=== PATIENT | female | born 1935 | race Caucasian/White ===

== ENCOUNTER → 2018-12-07 | Outpatient (REF) | payer MEDICAID, MEDICARE ==
[2018-12-07 10:13] LABS: HEMATOCRIT 42.4 % (36.0-47.0); HEMOGLOBIN 13.7 g/dl (12.0-15.5); MEAN CORPUSCULAR HGB CONC 32.3 g/dl (32.0-36.5); MEAN CORPUSCULAR VOLUME 92.8 fl (80.0-96.0); PLATELET COUNT, AUTOMATED 236 10^3/uL (150-450); RED BLOOD COUNT 4.57 10^6/uL (4.00-5.40); WHITE BLOOD COUNT 7.1 10^3/uL (4.0-10.0)
[2018-12-07 10:45] LABS: ALBUMIN 3.1 GM/DL (3.2-5.2); ALT/SGPT 19 U/L (12-78); BILIRUBIN,TOTAL 0.2 MG/DL (0.2-1.0); BLOOD UREA NITROGEN 14 MG/DL (7-18); CALCIUM LEVEL 8.8 MG/DL (8.8-10.2); CARBON DIOXIDE LEVEL 30 MEQ/L (21-32); CHLORIDE LEVEL 105 MEQ/L (98-107); CHOLESTEROL LEVEL 132 MG/DL (<200); CHOLESTEROL RISK RATIO 4.125 (<5); CREATININE FOR GFR 0.78 MG/DL (0.55-1.30); GLOMERULAR FILTRATION RATE > 60.0 (>32); GLUCOSE, FASTING 149 MG/DL (70-100); HDL CHOLESTEROL 32 MG/DL (>40); LDL CHOLESTEROL 77 MG/DL (<100); NON-HDL-C 100 MG/DL; SODIUM LEVEL 141 MEQ/L (136-145); TRIGLYCERIDES LEVEL 115 MG/DL (<150)
[2018-12-07 10:47] LABS: TOTAL 25(OH) VITAMIN D 55.9 NG/ML (30.0-100.0)
== END ==
LOC: SKLAB8 08:00
PROVIDERS: ATTEND Internal Medicine
DX: E03.9 Hypothyroidism, unspecified (principal); E55.9 Vitamin D deficiency, unspecified; I10 Essential (primary) hypertension; Z79.899 Other long term (current) drug therapy

== ENCOUNTER → 2019-04-05 | Outpatient (REF) | payer MEDICARE ==
[2019-04-05 16:20] LABS: BLOOD UREA NITROGEN 16 MG/DL (7-18); CALCIUM LEVEL 9.5 MG/DL (8.8-10.2); CARBON DIOXIDE LEVEL 29 MEQ/L (21-32); CHLORIDE LEVEL 104 MEQ/L (98-107); CREATININE FOR GFR 0.84 MG/DL (0.55-1.30); GLOMERULAR FILTRATION RATE > 60.0 (>32); GLUCOSE, FASTING 128 MG/DL (70-100); SODIUM LEVEL 140 MEQ/L (136-145)
== END ==
LOC: SKLAB8 15:11
PROVIDERS: ATTEND Internal Medicine
DX: E03.9 Hypothyroidism, unspecified (principal); F03.90 Unspecified dementia, unspecified severity, without behavioral disturbance, psychotic disturbance, mood disturbance, and anxiety; R32 Unspecified urinary incontinence; I12.9 Hypertensive chronic kidney disease with stage 1 through stage 4 chronic kidney disease, or unspecified chronic kidney disease; N18.3 Chronic kidney disease, stage 3 (moderate)

== ENCOUNTER → 2019-04-06 | Outpatient (REF) | payer MEDICARE ==
[~2019-04-06] MED LIST: ACET-907 PO; ALTA1CAP PO; AMLO5TAB6 PO; ASPI81CH8 PO; ATEN50TA2 PO; ATOR1TAB21 PO; D 10CHW PO; DIVA1CAP PO; DULC10SU2 PR; ELIQ5TAB PO; ENEMENE PR; LOPR1TAB6 PO; MEMA10TA19 PO; MOM30SS PO; NITR4TASL SL; PANT40TA3 PO; SYNT50TA PO
[2019-04-06 15:20] LABS: BLOOD UREA NITROGEN 13 MG/DL (7-18); CALCIUM LEVEL 9.2 MG/DL (8.8-10.2); CARBON DIOXIDE LEVEL 30 MEQ/L (21-32); CHLORIDE LEVEL 104 MEQ/L (98-107); CREATININE FOR GFR 0.89 MG/DL (0.55-1.30); GLOMERULAR FILTRATION RATE > 60.0 (>32); GLUCOSE, FASTING 121 MG/DL (70-100); POTASSIUM SERUM 4.4 MEQ/L (3.5-5.1); SODIUM LEVEL 140 MEQ/L (136-145)
== END ==
LOC: SKLAB8 04-05 19:20
PROVIDERS: ATTEND Internal Medicine
DX: G30.9 Alzheimer's disease, unspecified (principal); F02.81 Dementia in other diseases classified elsewhere, unspecified severity, with behavioral disturbance

== ENCOUNTER → 2019-05-26 | Outpatient (REF) | payer MEDICARE ==
[2019-05-26 08:04] LABS: HEMATOCRIT 42.7 % (36.0-47.0); HEMOGLOBIN 13.7 g/dl (12.0-15.5); MEAN CORPUSCULAR HEMOGLOBIN 30.9 pg (27.0-33.0); MEAN CORPUSCULAR HGB CONC 32.1 g/dl (32.0-36.5); MEAN CORPUSCULAR VOLUME 96.2 fl (80.0-96.0); PLATELET COUNT, AUTOMATED 229 10^3/uL (150-450); RED BLOOD COUNT 4.44 10^6/uL (4.00-5.40); WHITE BLOOD COUNT 6.1 10^3/uL (4.0-10.0)
[2019-05-26 08:33] LABS: ALBUMIN 2.8 GM/DL (3.2-5.2); ALT/SGPT 18 U/L (12-78); BILIRUBIN,TOTAL 0.4 MG/DL (0.2-1.0); BLOOD UREA NITROGEN 13 MG/DL (7-18); CALCIUM LEVEL 8.9 MG/DL (8.8-10.2); CARBON DIOXIDE LEVEL 28 MEQ/L (21-32); CHLORIDE LEVEL 107 MEQ/L (98-107); CREATININE FOR GFR 0.77 MG/DL (0.55-1.30); GLOMERULAR FILTRATION RATE > 60.0 (>32); GLUCOSE, FASTING 112 MG/DL (70-100); SODIUM LEVEL 140 MEQ/L (136-145); TOTAL PROTEIN 6.9 GM/DL (6.4-8.2)
== END ==
LOC: SKLAB8 07:00
PROVIDERS: ATTEND Internal Medicine
DX: E03.9 Hypothyroidism, unspecified (principal)

== ENCOUNTER 2019-07-27 09:40 | Inpatient (IN) | payer MEDICARE ==
[2019-07-27] VITALS (7 sets, daily range): BP systolic 106–146; BP diastolic 58–99
[~2019-07-27] VITALS: Ht 152.4 cm; Wt 98.0 kg
[2019-07-27] MEDS ORDERED: ASPIRIN 81 MG CHEW TABLET PO ONE (10:15)
[2019-07-27] MEDS ORDERED: NITROGLYCERIN 2% OINT 1 GM *U/D* PKT TOP ONE (10:15)
[2019-07-27 10:22] LABS: BASO % 0.2 % (0.0-1.0); EOS # 0.1 10^3/uL (0.0-0.5); EOS % 1.4 % (0.0-3.0); HEMATOCRIT 45.2 % (36.0-47.0); HEMOGLOBIN 14.8 g/dl (12.0-15.5); LYMPH # 1.8 10^3/uL (1.5-5.0); LYMPH % 20.7 % (24.0-44.0); MEAN CORPUSCULAR HEMOGLOBIN 31.6 pg (27.0-33.0); MEAN CORPUSCULAR HGB CONC 32.7 g/dl (32.0-36.5); MEAN CORPUSCULAR VOLUME 96.4 fl (80.0-96.0); MONO # 0.8 10^3/uL (0.0-0.8); MONO % 9.3 % (0.0-5.0); NEUTROPHILS % 68.3 % (36.0-66.0); PLATELET COUNT, AUTOMATED 251 10^3/uL (150-450); RED BLOOD COUNT 4.69 10^6/uL (4.00-5.40); WHITE BLOOD COUNT 8.8 10^3/uL (4.0-10.0)
[2019-07-27] MEDS ORDERED: ENEMENE PR (10:32)
[2019-07-27] MEDS ORDERED: LOPR1TAB6 PO (10:32)
[2019-07-27] MEDS ORDERED: D 10CHW PO (10:32)
[2019-07-27] MEDS ORDERED: MOM30SS PO (10:32)
[2019-07-27] MEDS ORDERED: SYNT50TA PO (10:32)
[2019-07-27] MEDS ORDERED: MEMA1TAB2 PO (10:32)
[2019-07-27] MEDS ORDERED: DIVA1CAP PO (10:32)
[2019-07-27] MEDS ORDERED: ACET-907 PO (10:32)
[2019-07-27] MEDS ORDERED: DULC10SU2 PR (10:32)
[2019-07-27 10:35] LABS: INR 1.02; PROTHROMBIN TIME 13.1 SECONDS (11.8-14.0)
[2019-07-27 10:36] LABS: PARTIAL THROMBOPLASTIN TIME 26.8 SECONDS (25.0-38.4)
--- NOTE | 2019-07-27 10:59 | REP ---
CHEST, SINGLE VIEW: Single view of the chest is performed. There are no prior studies for comparison. There is mild cardiomegaly. There is mild pulmonary venous hypertension. No infiltrate is seen. There is mild calcification and tortuosity of the thoracic aorta. The mediastinal silhouette is otherwise unremarkable. Electronically Signed by Rhett Thomas MD 07/28/2019 04:41 P
[2019-07-27] MEDS ORDERED: MORPHINE 2 MG/ML 1ML SYRINGE (J2270) IV PRN (11:00)
[2019-07-27] MEDS ORDERED: NITROGLYCERIN 0.4 MG SUBL TABLET SL PRN (11:00)
[2019-07-27 11:07] LABS: BLOOD UREA NITROGEN 16 MG/DL (7-18); CALCIUM LEVEL 9.4 MG/DL (8.8-10.2); CARBON DIOXIDE LEVEL 27 MEQ/L (21-32); CHLORIDE LEVEL 105 MEQ/L (98-107); CK-MB VALUE MASS 14.3 NG/ML (<3.6); CPK CREATINE PHOSPHOKINASE 257 U/L (26-192); CREATININE FOR GFR 0.77 MG/DL (0.55-1.30); GLOMERULAR FILTRATION RATE > 60.0 (>32); GLUCOSE, FASTING 113 MG/DL (70-100); MB/CK RELATIVE INDEX 5.56 (< OR =4); NT-PRO BNP 645 PG/ML (<450); POTASSIUM SERUM 4.6 MEQ/L (3.5-5.1); SODIUM LEVEL 140 MEQ/L (136-145)
[2019-07-27] MEDS ORDERED: CLOPIDOGREL 300 MG TAB (PLAVIX) PO ONE (12:00)
[2019-07-27] MEDS ORDERED: MORPHINE 4 MG/ML 1ML VIAL/SYRINGE (J2270) IV PRN (12:28)
[2019-07-27] MEDS ORDERED: DIGOXIN INJ 0.5 MG/2 ML AMP (J1160) IV STA (12:41)
[2019-07-27] MEDS ORDERED: MOM 30ML SUSPENSION UDC PO PRN (12:45)
[2019-07-27] MEDS ORDERED: METOPROLOL 5 MG/5 ML VIAL IV PRN (12:45)
[2019-07-27] MEDS ORDERED: BISACODYL 10 MG SUPP PR PRN (12:45)
[2019-07-27] MEDS ORDERED: METOPROLOL 5 MG/5 ML VIAL IV STA (12:55)
[2019-07-27] MEDS ORDERED: SIMVASTATIN 40 MG TAB PO ONE (13:15)
[2019-07-27] MEDS: ENOXAPARIN 80 MG/0.8 ML SYRINGE (J1650) SC SCH (13:18)
[2019-07-27] MEDS ORDERED: NS 250 ML IV ONE (13:30)
[2019-07-27] MEDS ORDERED: CLOPIDOGREL 75 MG TAB PO ONE (14:00)
--- NOTE | 2019-07-27 14:15 | HPE ---
DATE OF ADMISSION: 07/27/2019 CHIEF COMPLAINT: Chest pain. HISTORY OF PRESENT ILLNESS: This is an 84-year-old female with a history of hypertensive heart disease, hypertensive chronic kidney disease stage III, advanced Alzheimer's dementia with behavioral changes, currently lives at [facility] advanced dementia unit, presented to the emergency room with complaints of chest pain at 9 :00 a.m. this morning. The patient was found to have a new inferior wall myocardial infarction as well as blood pressure of 201/97. The hospitalist service was called to admit. Most of the history is obtained from the patient's daughter who is present at the bedside as the patient is severely demented. According to the daughter, the patient has been tired for the past two days. She was seen by the daughter yesterday. She usually gets up early and wanders about. Around 9:00 a.m. this morning, the patient denied any nausea, vomiting, epigastric pain, diaphoresis, dizziness, palpitations or lightheadedness. She was found to have uncontrolled blood pressure and was subsequently sent to the emergency room for evaluation for chest pain and hypertension. According to the daughter, the patient has been compliant with her medication, Lopressor 50 mg twice a day. In the ER she was chest pain free after nitroglycerin paste was placed. Hospitalist service ws called to admit. She otherwise she denies any fevers, chills or cough. She denies any dysuria, urgency, frequency, upper or lower extremity weakness. PAST MEDICAL HISTORY: Prolapsed uterus. Advanced Alzheimer's dementia. Lives on a locked unit at [facility]. Hypertensive chronic kidney disease stage III. Hypertensive heart disease. Hypothyroidism. Gastroesophageal reflux. Morbid obesity, body mass index (BMI) of 43. PAST SURGICAL HISTORY: Bladder suspension. Hysterectomy. Cholecystectomy. ALLERGIES: No known drug allergies. HOME MEDICATIONS: - metoprolol 50 mg twice a day - Milk of Magnesia as needed - levothyroxine 50 mcg daily - divalproex acid 125 mg daily - vitamin D 2000 units daily - Dulcolax 10 mg as needed - acetaminophen 650 mg every 4 hours as needed - memantine 10 mg twice a day - fleet enema as needed REVIEW OF SYSTEMS: 10 point system unable to be obtained aside from positive findings on HPI due to the patient's dementia. PHYSICAL EXAMINATION: VITAL SIGNS: Temperature 97.4, pulse 73, respiratory rate 17, blood pressure 145/63, 100% on room air. Repeat vital signs on telemetry pulse of 122, irregularly irregular. Generally, patient is awake, alert, oriented to self only. She answers questions appropriately, but very disoriented. She is cooperative. No jugular venous distention (JVD). No thyromegaly. No cervical lymphadenopathy. Pupils round and reactive. Patient is following commands. No facial drooping. No respiratory distress. No tracheal deviation. No nasal turbinate congestion. Lungs are clear to auscultation. No wheezing, rales or rhonchi. Heart S1, S2, irregularly irregular. No murmurs, rubs or gallops. Abdomen is soft, nontender, nondistended. Obese abdomen. Positive bowel sounds times four quadrants. No hepatosplenomegaly or abdominal bruits. Extremities no cyanosis or clubbing. No pallor. EKG sinus rhythm, ventricular rate of 69 at 8:43 a.m. with inferior Q waves, NV interval 183, QRS of 94, QT of 393, QTc of 412. LABORATORY DATA: White count 8.8, hemoglobin 14, hematocrit 45, platelet count 251. Sodium 140, potassium 4.6, chloride 105, bicarb 27, BUN 16, creatinine 0.77, glucose 113. Total CK 257, MB fraction 14, relative index 5.5, troponin 3.1. BNP of 645. ASSESSMENT/PLAN: This is an 84-year-old female with advanced dementia who resides at [facility] unit for dementia, usually wanders, hypertensive heart disease, hypertensive chronic kidney disease stage III, obesity with BMI of 43, reflux disease, hypothyroidism, who presents with acute onset of chest pain, found to have a new acute inferior myocardial infarction with subsequent new onset atrial fibrillation. The patient will be admitted as an inpatient for two midnights for the following acute issues: 1. Acute inferior wall myocardial infarction. The patient will be admitted to the telemetry unit. She has already been given aspirin, a low dose of Plavix, Lovenox 1 mg/kg renally dosed, Zocor and beta-blockers. Cardiology has been consulted for management. Echocardiogram has been ordered. 2. Telemetry shows atrial flutter with rapid ventricular rate. She has been given one dose of IV digoxin and a dose of intravenous metoprolol. Holding parameters for metoprolol twice a day have been given in light of blood pressure of 119 at the bedside. 3. Atrial flutter with rapid ventricular rate. Cardiology has been consulted for management of new onset atrial flutter. Patient currently is on aspirin and Plavix. For the patient's acute AZ she will need anticoagulation but will defer this to loss prevention leader. At this time the patient is currently on metoprolol 50 twice a day from her home dose but will need to monitor to make sure there is no hypotension. She did receive one dose of IV digoxin. Will check a digoxin level in the morning. 4. History of chronic kidney disease stage III. All medications have been renally dosed. 5. Morbid obesity, BMI of 43. Complicating her care. 6. Advanced dementia. The patient has very poor quality of life and often times does not remember her family or who they are. The patient's family have decided, according to the patient's prior wishes, do not pursue interventional radiology catheterization and possible stent placement and transfer to [place]. The patient will be continued on her home dose of memantine. She will need a sitter due to wandering behavior. The patient had already pulled out her IV. 7. Hypothyroidism. Continue on home dose of levothyroxine. Check thyroid function tests. 8. Hypertensive emergency with cute AZ. Due to hypertensive heart disease the patient had been compliant with her medications, metoprolol. She has been given nitro patch. Will place holding parameters on metoprolol in light of acute AZ. 9. History of reflux. Placed on Protonix 40 daily. 10. Vitamin D deficiency on supplementation. ADDENDUM: At 1:15 pm, patient was found to have new onset atrial flutter with rapid ventricular rate of 122-130. Blood pressure was 109 systolic. Patient did not complain of lightheadedness, dizziness, near syncope, palpitations, shortness of breath, chest pain, pressure or tightness. Patient was given one dose of IV metoprolol 5 mg as well as IV digoxin 0.125 mg. Patient's daughter was the healthcare proxy, Keyona Bowles, phone number [phone], who was present at the bedside in the intensive care unit (ICU) and has agreed with current management. Due to potential decrease in blood pressure, patient has been also been given a small dose of normal saline 250 bolus to allow enough blood pressure, 5 mg metoprolol to be given. She is resumed on her home dose of metoprolol 50 mg twice a day to be resumed later today but may need to be given earlier this morning for better rate control. Drawbench Operator, Dr. Ceron has been consulted. Patient has been given aspirin, simvastatin, Plavix and currently on Lovenox. I have discussed anticoagulation for prevention of cerebrovascular accident (CVA) with the patient's healthcare proxy Keyona, who is an RN. She will discuss this with the rest of the family and return to us with a decision. At this time, she is properly anticoagulated with Lovenox 1 mg subcu every 12 hours for a treatment for acute myocardial infarction that is renally dosed. MTDD
[2019-07-27 14:24] LABS: CHOLESTEROL RISK RATIO 5.705 (<5); FREE THYROXINE INDEX 4.2 % (1.3-4.8); THYROID STIMULATING HORMONE 2.25 uIU/ML (0.358-3.740); TROPONIN I 26.2 NG/ML (< 0.10)
[2019-07-27] MEDS: VITAMIN D 1,000 INTERNATIONAL UNITS TABLET PO SCH (15:05)
[2019-07-27] MEDS: PANTOPRAZOLE 40MG TAB (PROTONIX) PO SCH (15:07)
[2019-07-27] MEDS: METOPROLOL TART 25 MG TABLET PO SCH ×2 (15:07→18:27)
[2019-07-27] MEDS: NITROGLYCERIN 2% OINT 1 GM *U/D* PKT TOP SCH ×2 (16:00→21:57)
[2019-07-27] MEDS: DIVALPROEX SPRINKLE 125 MG CAP PO SCH (16:32)
[2019-07-27] MEDS ORDERED: METOPROLOL TART 50 MG TAB PO SCH (21:00)
[2019-07-27] MEDS: MEMANTINE 5MG TABLET (NAMENDA) PO SCH (21:56)
[2019-07-28] VITALS (11 sets, daily range): BP systolic 107–193; BP diastolic 56–88
[2019-07-28] MEDS: METOPROLOL TART 25 MG TABLET PO SCH ×5 (00:05→22:47)
[2019-07-28] MEDS: ENOXAPARIN 80 MG/0.8 ML SYRINGE (J1650) SC SCH ×3 (00:05→23:26)
[2019-07-28] MEDS: NITROGLYCERIN 2% OINT 1 GM *U/D* PKT TOP SCH ×4 (04:00→20:36)
[2019-07-28] MEDS: LEVOTHYROXINE 50MCG TABLET (0.05MG) PO SCH (05:24)
[2019-07-28 05:28] LABS: HEMATOCRIT 43.6 % (36.0-47.0); HEMOGLOBIN 14.1 g/dl (12.0-15.5); MEAN CORPUSCULAR HEMOGLOBIN 30.8 pg (27.0-33.0); MEAN CORPUSCULAR HGB CONC 32.3 g/dl (32.0-36.5); MEAN CORPUSCULAR VOLUME 95.2 fl (80.0-96.0); PLATELET COUNT, AUTOMATED 245 10^3/uL (150-450); RED BLOOD COUNT 4.58 10^6/uL (4.00-5.40); WHITE BLOOD COUNT 8.8 10^3/uL (4.0-10.0)
[2019-07-28 06:01] LABS: ALBUMIN 2.8 GM/DL (3.2-5.2); BLOOD UREA NITROGEN 12 MG/DL (7-18); CALCIUM LEVEL 8.7 MG/DL (8.8-10.2); CARBON DIOXIDE LEVEL 27 MEQ/L (21-32); CHLORIDE LEVEL 107 MEQ/L (98-107); CREATININE FOR GFR 0.72 MG/DL (0.55-1.30); DIGOXIN LEVEL 0.3 NG/ML (0.5-2.0); GLOMERULAR FILTRATION RATE > 60.0 (>32); GLUCOSE, FASTING 109 MG/DL (70-100); PHOSPHORUS LEVEL 2.6 MG/DL (2.5-4.9); POTASSIUM SERUM 4.5 MEQ/L (3.5-5.1); SODIUM LEVEL 139 MEQ/L (136-145)
--- NOTE | 2019-07-28 07:07 | CR ---
DATE OF CONSULTATION: 07/27/2019 REFERRING PROVIDER: Dr. Enid Chirinos REASON FOR CONSULTATION: Myocardial infarction (NV), atrial fibrillation. HISTORY OF PRESENT ILLNESS: 84-year-old woman with a history of hypertensive heart disease and dementia secondary to Alzheimer disease who was brought to the emergency room (ER) today early in the morning with chest pain and elevated blood pressure. Her initial electrocardiogram (EKG) done at 8:43:47 revealed sinus rhythm with acute inferior wall NV. It seems the decision was made not to transfer her because of patient wish and also because of her dementia. Repeat tracing on 9:52:06 also today and at 13:11:[address] segment elevation and much less reciprocal changes. The third EKG done this afternoon revealed atrial fibrillation at a ventricular rate of 121 beats per minute. Cardiology consult called for further evaluation. When I saw Mrs. Janina Bowles this evening in the ICU/CCU, she was supine in bed in no acute distress at rest and a sitter as well as a nurse was at bedside. She denies any chest pain per se, but she does complain of discomfort in the upper abdominal area. She had no orthopnea or paroxysmal nocturnal dyspnea (PND). Her atrial fibrillation seems under control. There is no dizziness. There is no diaphoresis. There is no report of bleeding. PAST MEDICAL HISTORY: Positive as mentioned above for hypertensive heart disease, hypothyroidism, gastroesophageal reflux disease, morbid obesity and dementia secondary to Alzheimer disease. There is no prior history of myocardial infarction, CVA, significant valvular heart disease, cardiomyopathy, sudden cardiac , prior NV/CAD. PAST SURGICAL HISTORY: Positive for bladder suspicion surgery, hysterectomy and cholecystectomy. CURRENT MEDICATIONS: - Plavix 75 mg by mouth daily - aspirin 81 mg by mouth daily - simvastatin 40 mg by mouth daily - levothyroxine 50 mcg by mouth daily - memantine 10 mg by mouth twice a day - nitroglycerin patch that he is on hold - magnesium oxide - Dulcolax 10 mg by mouth daily as needed - morphine sulfate 2 mg as needed IV - Lovenox of 70 mg subcu every 2 hours - metoprolol tartrate 25 mg by mouth every 6 hours - nitroglycerin sublingual 0.4 mg as needed for chest pain - pantoprazole 40 mg by mouth daily - vitamin D 2000 units by mouth daily - valproic acid 125 mg by mouth daily FAMILY HISTORY: Noncontributory. SOCIAL HISTORY: The patient is a resident of the [facility] and according to the daughter she is there because she wanders at times because of her dementia. Otherwise, she is very active. She does not smoke. There is no EtOH abuse. ALLERGIES: There is no known drug allergies. PHYSICAL EXAMINATION: The patient is alert and oriented, in no acute distress at rest. Her most recent vital signs reveal blood pressure of 119/75 with pulse that varied between 80-96, respirations 18 and a maximum temperature of 98.2 degrees Fahrenheit with oxygen saturation of 96% on room air. Examination of the Head: Atraumatic. Neck is supple and no jugular venous distention (JVD) appreciated. Lungs did not reveal any wheezing or crackles. Heart examination revealed an irregularly irregular heart sound without gallops. The PMI is not displaced. There is no rub. I could not appreciate any murmurs. Abdomen is soft and nontender. Bowel sounds are positive. Extremities only reveal trace bilateral lower leg edema. Neurological Examination: Grossly is negative for focal deficit. LABORATORY DATA: Serum troponins were 3.10, 26.20, and 26.70 respectively. Pro-BNP is 645. BMP revealed a sodium of 140, potassium 4.6, chloride 105, CO2 27, BUN 16, creatinine 0.77, GFR more than 60. fasting glucose 113, calcium 9.4. The lipid profile revealed a total cholesterol of 194, triglyceride 110, LDL 138, cholesterol/HDL ratio of 5.7. TSH is 2.25. T4 is 11.0. CBC revealed a WBC of 8.8, hemoglobin 14.8, hematocrit 45.2 and platelet 251,000. PT is 13.1 with an INR of 1.02 and a PTT of 26.8. Chest x-ray done today revealed mild cardiomegaly, otherwise unremarkable. There was mild calcification and tortuous thoracic aorta. Telemetry at this present time revealed atrial fibrillation with a controlled ventricular rate. IMPRESSION: 84-year-old woman with the above medical programs who was admitted with chest pain, markedly elevated blood pressure and was found to have EKG findings consistent with an acute inferior wall myocardial infarction. The third troponin is about between 26.0 and 27.0. The patient is hard to evaluate, but it seems that she does have some residual chest pain. She complained of upper abdominal area discomfort. Her blood pressure is under control at this present time and her atrial fibrillation is under control. Her medications were reviewed and will continue the same for now with the Plavix and aspirin, her statin will be switched to generic Lipitor. We will continue with the anticoagulation for now, the Lovenox and a small dose of the beta-sean/metoprolol tartrate. She will need to be monitored for heart block. I will discuss with the invasive team in [place] to see if they want to proceed with a cardiac catheterization, her daughter who is in charge of her will proceed with that, but it does not seem that time she will agree with coronary artery bypass graft (CABG) if needed. She will go for coronary stenting. The case will be discussed with the invasive team in [place]. The case was also will be discussed with the hospitalist in the a.m., 07/28/2019. She appears to be stable at this present time. It was a pleasure to participate in the care of Mrs. Janina Bowles for her underlying cardiac condition. I will continue to monitor along with you. She is supposed to have an echocardiogram done, it will be reviewed. SHAHEEN
--- NOTE | 2019-07-28 08:45 | IPN ---
DATE: 07/28/2019 I saw the patient in the intensive care unit (ICU) this morning. She is alert, certainly not oriented, but she denies any discomfort or shortness of breath. She apparently was completely agitated all night, even though she seems calm this morning, somewhat tearful. I do not believe that she understands the implications of her diagnosis. When I told her that she had a heart attack, she said just a very small one. On physical exam, she is an obese woman, alert, but not oriented. Blood pressure 121/74. Heart rate has been in the 90s. She is afebrile. Saturation is 98%. Weight is 96.5 kg. I do not appreciate any jugular venous pulse (JVP) elevations. Lungs are relatively clear to auscultation. Heart exam reveals irregularly irregular rhythm. I do not appreciate any distinct gallop, rub or murmur. Abdomen is obese, soft. No peripheral edema, even though there are some small indentations from her socks. Peripheral pulses are present. Laboratories: Basic metabolic panel this morning is normal. Her troponin, the last one was 19.5, which is down from a peak of 26.7. Albumin is 2.8. CBC reveals a hemoglobin of 14.1, hematocrit 43.6 and platelet count 245,000. Mrs. Bowles is an 84-year-old female who has no prior history of cardiac disease, but has hypertensive heart disease and advanced dementia. She presented with inferior wall myocardial infarction yesterday. As a complication, she developed atrial fibrillation with rapid ventricular response. At this point, she seems comfortable and in no apparent distress. She is on aspirin and Plavix together with Lovenox 70 mg twice a day, which is slightly subtherapeutic, but considering the concomitant dual antiplatelet therapy it is probably acceptable. Her heart rate is still slightly tachycardiac. She received statin and she received beta sean. As far as the further management is concerned, according to the sign out I received from Dr. Ceron, there was no plan to transfer the patient for coronary angiography yesterday even though there may have been some subsequent change later. I will have to investigate where this is standing. My initial impression is that conservative management would seem more appropriate. The patient is DO NOT INTUBATE/DO NOT RESUSCITATE (DNI/DNR) and apparently there was a discussion about the possibility of bypass surgery which was clearly not considered a possibility.
[2019-07-28] MEDS ORDERED: SIMVASTATIN 40 MG TAB PO SCH (09:00)
[2019-07-28] MEDS: ASPIRIN 81 MG CHEW TABLET PO SCH (09:31)
[2019-07-28] MEDS: VITAMIN D 1,000 INTERNATIONAL UNITS TABLET PO SCH (09:31)
[2019-07-28] MEDS: MEMANTINE 5MG TABLET (NAMENDA) PO SCH ×2 (09:31→20:35)
[2019-07-28] MEDS: CLOPIDOGREL 75 MG TAB PO SCH (09:31)
[2019-07-28] MEDS: ATORVASTATIN 20 MG TAB PO SCH (09:31)
[2019-07-28] MEDS: DIVALPROEX SPRINKLE 125 MG CAP PO SCH (09:32)
[2019-07-28] MEDS: RAMIPRIL 1.25 MG CAP PO SCH (09:32)
[2019-07-28] MEDS: PANTOPRAZOLE 40MG TAB (PROTONIX) PO SCH (09:32)
[2019-07-28 09:39] LABS: CK-MB VALUE MASS 30.1 NG/ML (<3.6); CPK CREATINE PHOSPHOKINASE 431 U/L (26-192); MB/CK RELATIVE INDEX 6.98 (< OR =4)
[2019-07-28 13:08] LABS: CHOLESTEROL LEVEL 177 MG/DL (<200); CHOLESTEROL RISK RATIO 5.709 (<5); HDL CHOLESTEROL 31 MG/DL (>40); LDL CHOLESTEROL 124 MG/DL (<100); NON-HDL-C 146 MG/DL; TRIGLYCERIDES LEVEL 108 MG/DL (<150)
--- NOTE | 2019-07-28 14:43 | ECGEPIP ---
[facility] Test Date: 2019-07-27 Pat Name: ASHU KWON Department: Room: [place] [address] Gender: Female It Support Manager: DAVID SUGGSB: 1935 Requested By: ANNA Branch Order Number: [id number] Reading MD: Cory English Measurements Intervals [place] Rate: 121 P: MT: 0 QRS: 7 QRSD: 86 T: 14 QT: 321 QTc: 457 Interpretive Statements ATRIAL FIBRILLATION WITH RAPID VENTRICULAR RESPONSE INFERIOR MYOCARDIAL INFARCTION, PROBABLY OLD Previous tracings in system on 07-27-19 showed sinus rhythm, inferior q waves possibly related to previous Inferior ST elevations Electronically Signed on 07-28-2019 14:43:37 EDT by Cory English
--- NOTE | 2019-07-28 15:07 | IPN ---
DATE: 07/28/2019 SUBJECTIVE: The patient denies any chest pain, pressure or tightness, lightheadedness or dizziness. The patient had a rough night and was not sleeping throughout the night. She was crying all night along according to the sitter. Her heart rate increased a little bit, she became tachycardic when she tried to get up, but was easily reoriented. She currently denies any dizziness or lightheadedness or shortness of breath this morning. OBJECTIVE: PHYSICAL EXAMINATION: VITAL SIGNS: Temperature 98, pulse 92, respiratory rate 18, blood pressure 121/72, 98% on 2 liters nasal cannula. GENERAL: The patient is awake, alert, oriented to herself only. She is pleasantly confused, cooperative and answering questions appropriately. No use of accessory respiratory muscles or conversational dyspnea. No jugular venous distention (JVD) or thyromegaly. LUNGS: Clear to auscultation. No wheezing or rales. No rhonchi noted. HEART: S1, S2. Irregularly irregular. ABDOMEN: Soft, nontender, nondistended. Obese abdomen. EXTREMITIES: Trace edema bilaterally. No cyanosis or clubbing. HOSPITAL MEDICATIONS: - Plavix 75 mg daily- aspirin 81 mg daily- Lipitor 40 mg daily- ramipril- Synthroid- nitroglycerin bisacodyl milk of magnesia intravenous morphine- Lovenox- Lopressor- Protonix- vitamin D- Depakote LABORATORY DATA: White count 8.8, hemoglobin 15, hematocrit 42, platelet count 245. Sodium 139, potassium 4.5, chloride 107, bicarbonate 27, BUN 12, creatinine 0.72, glucose 109, total CK 431, MB fraction of 30, troponin 14.4 from peak of 26.7, albumin 2.8, triglycerides 108, total cholesterol 177, LDL 124, non HDL 146, total HDL 31, TSH 2.250. ASSESSMENT AND PLAN: This is an 84-year-old female with hypertensive heart disease, advanced dementia, obesity with Body Mass Index (BMI) of 41, lives at [facility]. She has chronic kidney disease stage III and hypothyroidism. She presents with acute onset of chest pain and found to have an acute inferior wall myocardial infarction, admitted to the progressive care unit (PCU) and was found to have atrial flutter, which was paroxysmal requiring metoprolol overnight. The patient did receive one dose of intravenous Digoxin. The patient has been chest pain free after nitroglycerin was provided. The patient's troponin has decreased. According to healthcare proxy, no transfer to [facility] during admission and she has agreed medical management at [facility]. After the patient was seen by Dr. Vega, supplier quality manager, this morning, the patient's family would like to discuss the case with cardiology to see if they would recommend transferring the patient to [facility]. At this time, the patient is under medical management for the following issues: 1. Acute inferior wall myocardial infarction with subsequent tachyarrhythmia, paroxysmal atrial fibrillation. She is currently on aspirin, Plavix, Lovenox, ramipril and Lipitor, managed by cardiology. At this time, the patient is chest pain free with troponin decreasing to 14 from peak of 26.7. EKG shows Q waves in the inferior leads. Overnight, the patient's telemetry was rate controlled with irregular rate of 77 to 96 on metoprolol 25 mg every 6 hours. Blood pressure was well maintained with pressure of 113 to 135. 2. Atrial fibrillation with rapid ventricular rate. 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 She is currently on Lovenox and rate controlled with metoprolol 25 mg every 6 hours. 3. Chronic kidney disease stage III, at baseline creatinine. 4. Advanced dementia. Currently on Namenda 10 mg twice a day. The patient is requiring a sitter due to wandering nature. 5. Hypothyroidism. On chronic Synthroid. 6. Morbid obesity. BMI 41.5, complicating her care. SHAHEEN
--- NOTE | 2019-07-28 21:22 | ECGEPIP ---
[facility] - ED Test Date: 2019-07-27 Pat Name: ASHU KWON Department: Room: [place] [address] Gender: Female Rollout Manager: mag : 1935 Requested By: Johny Del Rosario Order Number: [id number] Reading MD: Mercy Taylor Measurements Intervals [place] Rate: 72 P: 27 [place]: 179 QRS: 42 QRSD: 91 T: 50 QT: 385 QTc: 422 Interpretive Statements SINUS RHYTHM PROBABLE INFERIOR MYOCARDIAL INFARCTION, OF INDETERMINATE AGE 907/27/19 INFERIOR STEMI Electronically Signed on 07-28-2019 21:22:43 EDT by Mercy Taylor
[2019-07-29] VITALS (7 sets, daily range): BP systolic 117–165; BP diastolic 77–91
[2019-07-29] MEDS: NITROGLYCERIN 2% OINT 1 GM *U/D* PKT TOP SCH ×4 (04:25→21:04)
[2019-07-29] MEDS: LEVOTHYROXINE 50MCG TABLET (0.05MG) PO SCH (05:37)
[2019-07-29] MEDS: METOPROLOL TART 25 MG TABLET PO SCH ×3 (05:39→18:09)
[2019-07-29 06:00] LABS: HEMOGLOBIN 13.3 g/dl (12.0-15.5); MEAN CORPUSCULAR HEMOGLOBIN 30.4 pg (27.0-33.0); MEAN CORPUSCULAR HGB CONC 32.4 g/dl (32.0-36.5); MEAN CORPUSCULAR VOLUME 93.6 fl (80.0-96.0); PLATELET COUNT, AUTOMATED 253 10^3/uL (150-450); RED BLOOD COUNT 4.38 10^6/uL (4.00-5.40); WHITE BLOOD COUNT 10.3 10^3/uL (4.0-10.0)
[2019-07-29 06:19] LABS: ALBUMIN 2.7 GM/DL (3.2-5.2); BLOOD UREA NITROGEN 14 MG/DL (7-18); CALCIUM LEVEL 8.5 MG/DL (8.8-10.2); CARBON DIOXIDE LEVEL 26 MEQ/L (21-32); CHLORIDE LEVEL 107 MEQ/L (98-107); CREATININE FOR GFR 0.78 MG/DL (0.55-1.30); GLOMERULAR FILTRATION RATE > 60.0 (>32); GLUCOSE, FASTING 111 MG/DL (70-100); PHOSPHORUS LEVEL 2.5 MG/DL (2.5-4.9); POTASSIUM SERUM 4.1 MEQ/L (3.5-5.1); SODIUM LEVEL 139 MEQ/L (136-145)
[2019-07-29] MEDS ORDERED: SLF 3 ML SYR IV PRN (09:00)
[2019-07-29 09:08] LABS: CPK CREATINE PHOSPHOKINASE 174 U/L (26-192); MB/CK RELATIVE INDEX 5.17 (< OR =4); TROPONIN I 9.03 NG/ML (< 0.10)
[2019-07-29] MEDS: ATORVASTATIN 20 MG TAB PO SCH (09:24)
[2019-07-29] MEDS: RAMIPRIL 1.25 MG CAP PO SCH (09:25)
[2019-07-29] MEDS: PANTOPRAZOLE 40MG TAB (PROTONIX) PO SCH (09:25)
[2019-07-29] MEDS: CLOPIDOGREL 75 MG TAB PO SCH (09:25)
[2019-07-29] MEDS: ASPIRIN 81 MG CHEW TABLET PO SCH (09:26)
[2019-07-29] MEDS: VITAMIN D 1,000 INTERNATIONAL UNITS TABLET PO SCH (09:26)
[2019-07-29] MEDS: MEMANTINE 5MG TABLET (NAMENDA) PO SCH ×2 (09:26→21:04)
[2019-07-29] MEDS: DIVALPROEX SPRINKLE 125 MG CAP PO SCH (09:26)
[2019-07-29] MEDS: ENOXAPARIN 80 MG/0.8 ML SYRINGE (J1650) SC SCH (12:31)
[2019-07-29] MEDS: SLF 3 ML SYR IV SCH ×2 (12:31→21:04)
--- NOTE | 2019-07-29 13:51 | IPN ---
DATE: 07/29/2019 SUBJECTIVE: The patient had a more restful night last night. Able to sleep better. According to the sitter, the patient has been much more cooperative and not crying as much. She continues to be pleasantly confused and has not been belligerent and has been fairly cooperative. This morning, she denies any shortness of breath, chest pain, pressure, tightness. Denies any dizziness or lightheadedness. Sleeping, but readily arousable. OBJECTIVE/PHYSICAL EXAMINATION: VITAL SIGNS: Temperature 98, pulse 73, respiratory rate 20, blood pressure 127/70, 95% on 2 liters nasal cannula. GENERAL: The patient is awake, alert, oriented to herself only. She is pleasantly confused, with advanced dementia. She is cooperative and answers questions appropriately, but disoriented to time and place. She has no jugular venous distention (JVD). No thyromegaly. No cervical lymphadenopathy. LUNGS: Clear to auscultation. No wheezing, rales or rhonchi. HEART: S1 and S2, irregularly irregular, with episodes of uncontrolled rhythm of 121 to 124 yesterday. No murmurs, rubs or gallops. ABDOMEN: Obese, soft, nontender, nondistended. EXTREMITIES: No cyanosis or clubbing. No peripheral edema. HOSPITAL MEDICATIONS: - aspirin - Plavix - Lipitor - ramipril - Synthroid - Namenda - Nitrobid 2% one inch every 6 hours - Dulcolax as needed - milk of magnesia as needed - morphine as needed - metoprolol 25 every 6 hours - nitroglycerin sublingually as needed - Protonix - vitamin D - Depakote 07/27/2019 chest x-ray with mild calcification and tortuosity of the thoracic aorta, mild pulmonary venous hypertension, no infiltrates seen, mediastinal silhouette is otherwise unremarkable. ASSESSMENT AND PLAN: This is an 84-year-old, DO NOT RESUSCITATE, DO NOT INTUBATE, female with hypertensive heart disease, advanced dementia, obesity with body mass index (BMI) of 41, who lives at [facility] with chronic kidney disease stage III and hypothyroidism who presented to the emergency room after complaining of acute onset of chest pain and found to have an acute inferior wall myocardial infarction. She was admitted to the progressive care unit (PCU) and was found on telemetry to have a new onset of atrial fibrillation which responded to metoprolol. The patient did receive one dose of intravenous digoxin on the first day. She remained chest pain free after nitroglycerin was given and blood pressure had improved. The patient's troponin has steadily decreased. On admission in the emergency room, the patient's health care proxy, Bharti, had opted to remain at [facility] for medical management and did not want the mother to be transferred for coronary angiogram in [place]. The patient currently is stable with decreasing troponin and chest pain free since admission with the following issues. 1. Acute inferior wall myocardial infarction with subsequent atrial fibrillation which is new onset. She is currently on aspirin, Plavix, Lipitor, ramipril, and Lovenox, managed by cardiology, Dr. Ceron. At this time, the patient is chest pain free and has nitroglycerin topically every 6 hours with no repeat episodes. Also denies any shortness of breath, dizziness, lightheadedness or near syncope. Troponin had a peak of 26.7 and currently with troponin of 9.03. Blood pressure is well maintained on metoprolol 25 every 6 hours. 2. Atrial fibrillation with rapid ventricular rate. The patient's family has not decided on whether half-way anticoagulation would be helpful for their mother who is demented and may be at risk of falls. Bharti, who is the health care proxy, will discuss this with the rest of the family. She is currently rate controlled with metoprolol 25 mg every 6 hour and is on Lovenox for the acute inferior wall myocardial infarction. 3. Chronic kidney disease stage III, at baseline creatinine. 4. Hypothyroidism. On chronic Synthroid. 5. Morbid obesity. BMI 41.5, complicating her care. 6. Advanced dementia. On Namenda 10 mg twice a day. The patient is requiring a sitter due to her wandering nature. [facility]
[2019-07-30] MEDS: METOPROLOL TART 25 MG TABLET PO SCH ×5 (00:47→23:51)
[2019-07-30] MEDS: ENOXAPARIN 80 MG/0.8 ML SYRINGE (J1650) SC SCH ×3 (00:47→23:53)
[2019-07-30 04:00] VITALS: BP 140/90
[2019-07-30] MEDS: LEVOTHYROXINE 50MCG TABLET (0.05MG) PO SCH (05:39)
[2019-07-30] MEDS: SLF 3 ML SYR IV SCH ×3 (05:39→19:55)
[2019-07-30] MEDS: NITROGLYCERIN 2% OINT 1 GM *U/D* PKT TOP SCH ×4 (05:39→23:52)
[2019-07-30 06:08] LABS: HEMATOCRIT 42.9 % (36.0-47.0); MEAN CORPUSCULAR HEMOGLOBIN 31.3 pg (27.0-33.0); MEAN CORPUSCULAR HGB CONC 32.6 g/dl (32.0-36.5); MEAN CORPUSCULAR VOLUME 95.8 fl (80.0-96.0); PLATELET COUNT, AUTOMATED 237 10^3/uL (150-450); RED BLOOD COUNT 4.48 10^6/uL (4.00-5.40); WHITE BLOOD COUNT 9.3 10^3/uL (4.0-10.0)
[2019-07-30 06:30] LABS: ALBUMIN 2.7 GM/DL (3.2-5.2); BLOOD UREA NITROGEN 18 MG/DL (7-18); CALCIUM LEVEL 8.9 MG/DL (8.8-10.2); CARBON DIOXIDE LEVEL 28 MEQ/L (21-32); CHLORIDE LEVEL 104 MEQ/L (98-107); CREATININE FOR GFR 0.94 MG/DL (0.55-1.30); GLOMERULAR FILTRATION RATE > 60.0 (>32); GLUCOSE, FASTING 103 MG/DL (70-100); PHOSPHORUS LEVEL 2.7 MG/DL (2.5-4.9); POTASSIUM SERUM 3.9 MEQ/L (3.5-5.1); SODIUM LEVEL 139 MEQ/L (136-145)
--- NOTE | 2019-07-30 06:39 | ECHO ---
DATE OF PROCEDURE: 07/28/2019 REFERRING PHYSICIAN: Dr. Chirinos INDICATION: Abnormal ECG, acute coronary syndrome. HEIGHT: 150 cm WEIGHT: 97 kg DIMENSIONS: IVS: 1.2 LV: 4.1 LVPW: 1.1 LA: 4.1 Aorta: 2.8 RV: 3.3 IVC: 2.0 Left atrial volume index: 38 Mitral E wave velocity: 101, A-wave 50, E prime septal: 5.3 E prime lateral: 6.5 FINDINGS: The study is of fair technical quality with somewhat limited visualization. The patient is in sinus rhythm. Left ventricle is of normal size and globally normal systolic function. Estimated left ventricular ejection fraction (LVEF) around 65%. Unfortunately due to limitations of the study, I cannot rule out subtle wall motion abnormalities. Right ventricle does not appear grossly enlarged. Left atrium is moderately enlarged. Right atrium appears normal. Aortic valve is minimally sclerotic but it has three cusps and normal mobility. Mitral, tricuspid and pulmonic valve appear grossly normal. No pericardial effusion is present. Inferior vena cava is upper limits of normal size. Aortic root is normal. Aortic arch and abdominal aorta were not well seen. Doppler interrogation of aortic valve reveals no stenosis or insufficiency. There is mild mitral insufficiency and mild tricuspid insufficiency. Calculated pulmonary artery pressure is in 30s corresponding to mild pulmonary hypertension. Pulmonic valve exhibits mild insufficiency. Mitral inflow pattern and tissue Doppler imaging of mitral annulus reveal grade 2 diastolic dysfunction. CONCLUSIONS: 1. Study is of fair technical quality. 2. Normal LV size with borderline left ventricular hypertrophy (LVH), probably normal LV systolic function and grade 2 diastolic dysfunction. 3. Mild mitral, tricuspid and pulmonic insufficiency. 4. Likely normal or mildly elevated central venous pressure and mild pulmonary hypertension. COMMENTS: Subacute bacterial endocarditis (SBE) prophylaxis is not recommended. No obvious wall motion abnormality is seen.
[2019-07-30 08:00] VITALS: BP 131/73
[2019-07-30] MEDS: ASPIRIN 81 MG CHEW TABLET PO SCH (08:32)
[2019-07-30] MEDS: VITAMIN D 1,000 INTERNATIONAL UNITS TABLET PO SCH (08:32)
[2019-07-30] MEDS: MEMANTINE 5MG TABLET (NAMENDA) PO SCH ×2 (08:32→19:55)
[2019-07-30] MEDS: CLOPIDOGREL 75 MG TAB PO SCH (08:33)
[2019-07-30] MEDS: ATORVASTATIN 20 MG TAB PO SCH (08:33)
[2019-07-30] MEDS: RAMIPRIL 1.25 MG CAP PO SCH (08:33)
[2019-07-30] MEDS: DIVALPROEX SPRINKLE 125 MG CAP PO SCH (08:33)
[2019-07-30] MEDS: PANTOPRAZOLE 40MG TAB (PROTONIX) PO SCH (08:33)
[2019-07-30 10:36] LABS: CK-MB VALUE MASS 3.6 NG/ML (<3.6); CPK CREATINE PHOSPHOKINASE 88 U/L (26-192); MB/CK RELATIVE INDEX 4.09 (< OR =4); TROPONIN I 6.47 NG/ML (< 0.10)
--- NOTE | 2019-07-30 10:48 | ECGEPIP ---
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
--- NOTE | 2019-07-30 11:07 | ECGEPIP ---
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
[2019-07-30 12:00] VITALS: BP 131/62
[2019-07-30 16:00] VITALS: BP 140/50
--- NOTE | 2019-07-30 16:46 | IPNPDOC ---
Date Seen The patient was seen on 07/30/19. Progress Note SUBJECTIVE: no c/o chest pain, pressure, tightness. She has been cooperative, and has not been pulling on her lines per sitter and daughter at the bedside. Troponin trending downwards. Pt getting restless with being in the room all day. Tele: Afib rate controlled. OBJECTIVE/PHYSICAL EXAMINATION: VITAL SIGNS: pls see below GENERAL:asleep, but easily arousable. no use of respiratory accessory muscles. no cyanosis. She is pleasantly confused, with advanced dementia. She is cooperative and answers questions appropriately, but disoriented to time and place. She has no jugular venous distention (JVD). No thyromegaly. No cervical lymphadenopathy. LUNGS: Clear to auscultation. No wheezing, rales or rhonchi. HEART: S1 and S2, irregularly irregular, with episodes of uncontrolled rhythm of 121 to 124 yesterday. No murmurs, rubs or gallops. ABDOMEN: Obese, soft, nontender, nondistended. EXTREMITIES: No cyanosis or clubbing. No peripheral edema. HOSPITAL MEDICATIONS: - aspirin- Plavix- Lipitor- ramipril- Synthroid- Namenda- Nitrobid 2% one inch every 6 hours- Dulcolax as needed- milk of magnesia as needed- morphine as needed- metoprolol 25 every 6 hours- nitroglycerin sublingually as needed- Protonix- vitamin D- Depakote 07/27/2019 chest x-ray with mild calcification and tortuosity of the thoracic aorta, mild pulmonary venous hypertension, no infiltrates seen, mediastinal silhouette is otherwise unremarkable. ASSESSMENT AND PLAN: This is an 84-year-old, DO NOT RESUSCITATE, DO NOT INTUBATE, female with hypertensive heart disease, advanced dementia, obesity with body mass index (BMI) of 41, who lives at [facility] with chronic kidney disease stage III and hypothyroidism who presented to the emergency room after complaining of acute onset of chest pain and found to have an acute inferior wall myocardial infarction. She was admitted to the progressive care unit (PCU) and was found on telemetry to have a new onset of atrial fibrillation which responded to metoprolol. The patient did receive one dose of intravenous digoxin on the first day. She remained chest pain free after nitroglycerin was given and blood pressure had improved. The patient's troponin has steadily decreased. On admission in the emergency room, the patient's health care proxy, Bharti, had opted to remain at [facility] for medical management and did not want the mother to be transferred for coronary angiogram in [place]. The patient currently is stable with decreasing troponin and chest pain free since admission with the following issues. Acute inferior wall myocardial infarction with subsequent atrial fibrillation which is new onset. She is currently on aspirin, Plavix, Lipitor, ramipril, and Lovenox, managed by cardiology, Dr. Ceron. At this time, the patient is chest pain free and has nitroglycerin topically every 6 hours with no repeat episodes. Also denies any shortness of breath, dizziness, lightheadedness or near syncope. Troponin had a peak of 26.7 trending downwards. Blood pressure is well maintained on metoprolol 25 every 6 hours. Atrial fibrillation with rapid ventricular rate. The patient's family has not decided on whether continuous churn buttermaker anticoagulation would be helpful for their mother who is demented and may be at risk of falls. Bharti, who is the health care proxy, will discuss this with the rest of the family. She is currently rate controlled with metoprolol 25 mg every 6 hour and is on Lovenox for the acute inferior wall myocardial infarction. Chronic kidney disease stage III, at baseline creatinine. Hypothyroidism. On chronic Synthroid. Morbid obesity. BMI 41.5, complicating her care. Advanced dementia. On Namenda 10 mg twice a day. The patient is requiring a sitter due to her wandering nature. disposition: complete 5days of sq lovenox, will need ac for afib. titrate meds per cardiology for better SNF administration when discharged back to [facility]. VS, I&O, 24H, [place] Vital Signs/I&O Vital Signs Date Time Temp Pulse Resp B/P (MAP) Pulse Ox O2 Delivery O2 Flow Rate FiO2 07/30/19 12:00 97.7 82 18 131/62 (85) 96 07/27/19 10:25 Room Air 07/27/19 09:59 2.0 I&O- Last 24 Hours up to 6 AM 07/30/19 06:00 Intake Total 840 ml Output Total 250 ml Balance 590 ml Laboratory Data 24H LABS Laboratory Tests 2 07/30/19 05:23: Nucleated Red Blood Cells % (auto) 0.0, Blood Urea Nitrogen 18, Creatinine 0.94, Sodium Level 139, Potassium Level 3.9, Chloride Level 104, Carbon Dioxide Level 28, Anion Gap 7L, Glomerular Filtration Rate > 60.0, Calcium Level 8.9, Phosphorus Level 2.7, Total Creatine Kinase 88, Creatine Kinase MB 3.6, Creatine Kinase MB Relative Index 4.09H, Troponin I 6.47#*H, Albumin 2.7L CBC/BMP Laboratory Tests 07/30/19 05:23 Red Blood Count 4.48, Mean Corpuscular Volume 95.8, Mean Corpuscular Hemoglobin 31.3, Mean Corpuscular Hemoglobin Concent 32.6, Red Cell Distribution Width 14.1, Anion Gap 7 L ANNA HERNANDEZ MD Jul 30, 2019 16:45
--- NOTE | 2019-07-30 17:25 | IPN ---
DATE: 07/30/2019 The patient is in progressive care unit (PCU). She remains in atrial fibrillation that is rate controlled. She is in a good mood today and has no specific complaints. She remains only marginally oriented to the person but not necessarily to the date or place. Her daughter, who is an RN from [facility] and her healthcare proxy, is at bedside. Vital signs: Blood pressure 131/70. Heart rate has been in 70s to low 100s. She is afebrile. Saturation 95% on room air. Weight is 98.5 kg. She is alert. Her jugular venous pulse (JVP) is not high. Lungs are clear. Good air movement. No wheezing. Heart exam: Irregularly irregular rhythm. I do not appreciate gallop, rub, or murmur. Abdomen is very obese but soft and nontender. No edema. LABORATORY: Basic metabolic panel is normal. Her troponin is 6.5. She peaked around 26. CBC is normal. ASSESSMENT AND PLAN: Mrs. Bowles is an 84-year-old female with fairly advanced dementia who presented with inferior wall myocardial infarction (MN) in atrial fibrillation. The decision was to treat her medically after consultation with the family. She did well with purely medical management. She is currently receiving aspirin, Plavix, and Lovenox together with metoprolol, ramipril, and statin. There has not been any recurrent ischemia that I can discern. Even though she is demented, she would complain about chest pain. I do not have much else to recommend. I had a discussion with her daughter again regarding their wishes, and it is clear that there is no desire to proceed with any invasive therapies. I will discharge her home probably on combination of only Plavix and Xarelto for anticoagulation. I would choose Xarelto because of only once a day dosing and also because there is most data on its use in combination with antiplatelet agents. I would discharge her without aspirin when she goes home, because the triple therapy carries high bleeding risk. Please call me back if further assistance is desired. Otherwise, I am going to sign off her care.
[2019-07-30 20:00] VITALS: BP 147/70
[2019-07-30 23:59] VITALS: BP 168/80
[2019-07-31 04:00] VITALS: BP 144/82
[2019-07-31 05:33] LABS: HEMATOCRIT 41.4 % (36.0-47.0); HEMOGLOBIN 13.1 g/dl (12.0-15.5); MEAN CORPUSCULAR HEMOGLOBIN 29.8 pg (27.0-33.0); MEAN CORPUSCULAR HGB CONC 31.6 g/dl (32.0-36.5); MEAN CORPUSCULAR VOLUME 94.3 fl (80.0-96.0); PLATELET COUNT, AUTOMATED 232 10^3/uL (150-450); RED BLOOD COUNT 4.39 10^6/uL (4.00-5.40); WHITE BLOOD COUNT 9.6 10^3/uL (4.0-10.0)
[2019-07-31 05:50] LABS: ALBUMIN 2.8 GM/DL (3.2-5.2); BLOOD UREA NITROGEN 16 MG/DL (7-18); CALCIUM LEVEL 8.8 MG/DL (8.8-10.2); CARBON DIOXIDE LEVEL 30 MEQ/L (21-32); CHLORIDE LEVEL 103 MEQ/L (98-107); CREATININE FOR GFR 0.82 MG/DL (0.55-1.30); GLOMERULAR FILTRATION RATE > 60.0 (>32); GLUCOSE, FASTING 104 MG/DL (70-100); PHOSPHORUS LEVEL 2.8 MG/DL (2.5-4.9); POTASSIUM SERUM 4.2 MEQ/L (3.5-5.1); SODIUM LEVEL 140 MEQ/L (136-145)
[2019-07-31] MEDS: METOPROLOL TART 25 MG TABLET PO SCH (06:03)
[2019-07-31] MEDS: LEVOTHYROXINE 50MCG TABLET (0.05MG) PO SCH (06:03)
[2019-07-31] MEDS: SLF 3 ML SYR IV SCH ×3 (06:04→22:00)
[2019-07-31] MEDS: NITROGLYCERIN 2% OINT 1 GM *U/D* PKT TOP SCH ×4 (06:04→23:19)
[2019-07-31 08:00] VITALS: BP 132/84
[2019-07-31] MEDS: VITAMIN D 1,000 INTERNATIONAL UNITS TABLET PO SCH (09:29)
[2019-07-31] MEDS: ASPIRIN 81 MG CHEW TABLET PO SCH (09:31)
[2019-07-31] MEDS: PANTOPRAZOLE 40MG TAB (PROTONIX) PO SCH (09:31)
[2019-07-31] MEDS: CLOPIDOGREL 75 MG TAB PO SCH (09:31)
[2019-07-31] MEDS: ATORVASTATIN 20 MG TAB PO SCH (09:31)
[2019-07-31] MEDS: ATENOLOL 50 MG TAB PO SCH ×2 (09:32→23:19)
[2019-07-31] MEDS: RAMIPRIL 1.25 MG CAP PO SCH (09:32)
[2019-07-31] MEDS: DIVALPROEX SPRINKLE 125 MG CAP PO SCH (09:32)
[2019-07-31] MEDS: MEMANTINE 5MG TABLET (NAMENDA) PO SCH ×2 (09:32→23:16)
[2019-07-31] MEDS: ENOXAPARIN 80 MG/0.8 ML SYRINGE (J1650) SC SCH ×2 (16:27→23:16)
--- NOTE | 2019-07-31 17:07 | IPNPDOC ---
Date Seen The patient was seen on 07/31/19. Progress Note SUBJECTIVE: cooperative when her daughter is at bedside and sitter present, but gets restless and wants to wander around when left alone. no c/o chest pain sob, or heaviness. OBJECTIVE/PHYSICAL EXAMINATION: VITAL SIGNS: pls see below GENERAL:cooperative hugging her anastasia bear and easily arousable. napping, but answers questions. disoriented to time and place. She has no jugular venous distention (JVD). No thyromegaly. No cervical lymphadenopathy. LUNGS: Clear to auscultation. No wheezing, rales or rhonchi. HEART: S1 and S2, irregularly irregular, with episodes of uncontrolled rhythm of 121 to 124 yesterday. No murmurs, rubs or gallops. ABDOMEN: Obese, soft, nontender, nondistended. EXTREMITIES: No cyanosis or clubbing. No peripheral edema. HOSPITAL MEDICATIONS: - aspirin- Plavix- Lipitor- ramipril- Synthroid- Namenda- Nitrobid 2% one inch every 6 hours- Dulcolax as needed- milk of magnesia as needed- morphine as needed- metoprolol 25 every 6 hours- nitroglycerin sublingually as needed- Protonix- vitamin D- Depakote 07/27/2019 chest x-ray with mild calcification and tortuosity of the thoracic aorta, mild pulmonary venous hypertension, no infiltrates seen, mediastinal silhouette is otherwise unremarkable. ASSESSMENT AND PLAN: This is an 84-year-old, DO NOT RESUSCITATE, DO NOT INTUBATE, female with hypertensive heart disease, advanced dementia, obesity with body mass index (BMI) of 41, who lives at [facility] dementia unit with chronic kidney disease stage III and hypothyroidism who presented to the emergency room after complaining of acute onset of chest pain and found to have an acute inferior wall myocardial infarction. She was admitted to the progressive care unit (PCU) and was found on telemetry to have a new onset of atrial fibrillation which responded to metoprolol. The patient did receive one dose of intravenous digoxin on the first day. She remained chest pain free after nitroglycerin was given and blood pressure had improved. The patient's troponin has steadily decreased. On admission in the emergency room, the patient's health care proxy, Bharti, had opted to remain at [facility] for medical management and did not want the mother to be transferred for coronary angiogram in [place]. The patient currently is stable with decreasing troponin and chest pain free since admission with the following issues. Acute inferior wall myocardial infarction with subsequent atrial fibrillation which is new onset. She is currently on aspirin, Plavix, Lipitor, ramipril, and Lovenox, managed by cardiology, Dr. Ceron. At this time, the patient is chest pain free and has nitroglycerin topically every 6 hours with no repeat episodes. Also denies any shortness of breath, dizziness, lightheadedness or near syncope. Troponin had a peak of 26.7 trending downwards. changed to atenolol [address] Munoz, may continue plavix and eliquis as outpt, but not asa due to risk of bleeding.dc nitropaste at discharge. Atrial fibrillation with rapid ventricular rate. on atenolol [address] mg bid. per cardio dr. munoz dc asa at discharge, continue eliquis and plavix. Chronic kidney disease stage III, at baseline creatinine. Hypothyroidism. On chronic Synthroid. Morbid obesity. BMI 41.5, complicating her care. Advanced dementia. On Namenda 10 mg twice a day. The patient is requiring a sitter due to her wandering nature. disposition: complete 5days of sq lovenox.. [facility] Sign[facility]/I&O Vital Signs Date Time Temp Pulse Resp B/P (MAP) Pulse Ox O2 Delivery O2 Flow Rate FiO2 07/31/19 16:26 136/76 07/31/19 09:32 80 07/31/19 08:00 97.7 17 95 07/27/19 10:25 Room Air 07/27/19 09:59 2.0 I&O- Last 24 Hours up to 6 AM 07/31/19 06:00 Intake Total 120 ml Output Total 550 ml Balance -430 ml Laboratory Data 24H LABS Laboratory Tests 2 07/31/19 05:13: Nucleated Red Blood Cells % (auto) 0.0, Blood Urea Nitrogen 16, Creatinine 0.82, Sodium Level 140, Potassium Level 4.2, Chloride Level 103, Carbon Dioxide Level 30, Anion Gap 7L, Glomerular Filtration Rate > 60.0, Calcium Level 8.8, Phosphorus Level 2.8, Albumin 2.8L CBC/BMP Laboratory Tests 07/31/19 05:13 Red Blood Count 4.39, Mean Corpuscular Volume 94.3, Mean Corpuscular Hemoglobin 29.8, Mean Corpuscular Hemoglobin Concent 31.6 L, Red Cell Distribution Width 14.0, Anion Gap 7 L ANNA HERNANDEZ MD Jul 31, 2019 17:07
[2019-07-31 18:00] VITALS: BP_SYST 136
[2019-07-31 20:00] VITALS: BP 132/76
[2019-08-01] VITALS: BP 135/93
[2019-08-01] MEDS: LEVOTHYROXINE 50MCG TABLET (0.05MG) PO SCH (05:39)
[2019-08-01] MEDS: NITROGLYCERIN 2% OINT 1 GM *U/D* PKT TOP SCH (05:40)
[2019-08-01] MEDS: SLF 3 ML SYR IV SCH (05:41)
[2019-08-01 06:00] VITALS: BP 161/82
[2019-08-01 07:03] LABS: HEMATOCRIT 41.8 % (36.0-47.0); HEMOGLOBIN 13.4 g/dl (12.0-15.5); MEAN CORPUSCULAR HEMOGLOBIN 30.4 pg (27.0-33.0); MEAN CORPUSCULAR HGB CONC 32.1 g/dl (32.0-36.5); MEAN CORPUSCULAR VOLUME 94.8 fl (80.0-96.0); PLATELET COUNT, AUTOMATED 253 10^3/uL (150-450); RED BLOOD COUNT 4.41 10^6/uL (4.00-5.40); WHITE BLOOD COUNT 8.8 10^3/uL (4.0-10.0)
[2019-08-01 07:33] LABS: ALBUMIN 2.8 GM/DL (3.2-5.2); BLOOD UREA NITROGEN 18 MG/DL (7-18); CALCIUM LEVEL 9.3 MG/DL (8.8-10.2); CARBON DIOXIDE LEVEL 29 MEQ/L (21-32); CHLORIDE LEVEL 102 MEQ/L (98-107); CREATININE FOR GFR 0.89 MG/DL (0.55-1.30); GLOMERULAR FILTRATION RATE > 60.0 (>32); GLUCOSE, FASTING 106 MG/DL (70-100); PHOSPHORUS LEVEL 3.1 MG/DL (2.5-4.9); POTASSIUM SERUM 4.2 MEQ/L (3.5-5.1); SODIUM LEVEL 138 MEQ/L (136-145)
[2019-08-01] MEDS: CLOPIDOGREL 75 MG TAB PO SCH (09:00)
--- NOTE | 2019-08-01 09:14 | ECHO ---
DATE OF PROCEDURE: 07/27/2019 REFERRING PHYSICIAN: Dr. Chirinos INDICATION: Acute myocardial infarction. HEIGHT: 152 cm WEIGHT: 100 kg 2D MEASUREMENTS: LVOT: 1.7 cm Aortic root: 2.8 cm Left atrium: 4.2 cm Ventricular septum: 1.30 cm Posterior wall: 1.04 cm Left ventricle diastole: 4.4 cm Left atrial volume index: 38 Inferior vena cava: 2.0 cm with more than 50% respiratory variation, suggestive of pressure in the range of 5 to 10 mmHg. DOPPLER MEASUREMENTS: Aortic valve velocity: 110 cm/s LVOT velocity: 107 cm/s LVOT VTI: 21.6 cm Very mild mitral regurgitation. Mild pulmonic regurgitation. Pulmonary artery systolic pressure: 41 mmHg DESCRIPTION: Rhythm was atrial flutter with variable atrial conduction with mostly rapid ventricular response. This was a moderately technical difficult echocardiogram. This was a 2D, M-mode, color flow Doppler and pulse wave Doppler examination. CONCLUSIONS: 1. Normal left ventricle internal dimensions. Mild hypertrophy of the anterior ventricular septum. No obvious regional wall motional abnormalities. This was a moderately technically difficult echocardiogram, especially for endocardial visualization. 2. Normal right ventricle size and systolic function, suggestive of moderate elevation of pulmonary artery systolic pressure. 3. Moderate left atrial dilatation by left atrial volume index. 4. Mild aortic valve sclerosis of a three-cusp aortic valve. No aortic regurgitation. No aortic stenosis. 5. Tiny pericardial effusion.
[2019-08-01] MEDS: MEMANTINE 5MG TABLET (NAMENDA) PO SCH ×2 (09:23→21:06)
[2019-08-01] MEDS: VITAMIN D 1,000 INTERNATIONAL UNITS TABLET PO SCH (09:23)
[2019-08-01] MEDS: ASPIRIN 81 MG CHEW TABLET PO SCH (09:23)
[2019-08-01] MEDS: DIVALPROEX SPRINKLE 125 MG CAP PO SCH (09:24)
[2019-08-01] MEDS: RAMIPRIL 1.25 MG CAP PO SCH (09:24)
[2019-08-01] MEDS: PANTOPRAZOLE 40MG TAB (PROTONIX) PO SCH (09:24)
[2019-08-01] MEDS: ATENOLOL 50 MG TAB PO SCH ×2 (09:24→21:07)
[2019-08-01] MEDS: ATORVASTATIN 20 MG TAB PO SCH (09:24)
[2019-08-01] MEDS: amLODIPine 5 MG TAB PO SCH ×2 (09:29→21:07)
[2019-08-01 09:39] LABS: CK-MB VALUE MASS 1.2 NG/ML (<3.6); CPK CREATINE PHOSPHOKINASE 40 U/L (26-192); TROPONIN I 2.43 NG/ML (< 0.10)
[2019-08-01] MEDS: APIXABAN 5 MG TAB (ELIQUIS) PO SCH ×2 (12:17→21:06)
--- NOTE | 2019-08-01 21:28 | IPNPDOC ---
Date Seen The patient was seen on 08/01/19. Progress Note SUBJECTIVE: no c/o cp, pressure,tightness, sob, n/v/headache, changes in vision. OBJECTIVE/PHYSICAL EXAMINATION: VITAL SIGNS: pls see below GENERAL:cooperative hugging her anastasia bear disoriented to time and place. She has no jugular venous distention (JVD). No thyromegaly. No cervical lymphadenopathy. LUNGS: Clear to auscultation. No wheezing, rales or rhonchi. HEART: S1 and S2, irregularly irregular, with episodes of uncontrolled rhythm of 121 to 124 yesterday. No murmurs, rubs or gallops. ABDOMEN: Obese, soft, nontender, nondistended. EXTREMITIES: No cyanosis or clubbing. No peripheral edema. HOSPITAL MEDICATIONS:reviewed, pls see below 07/27/2019 chest x-ray with mild calcification and tortuosity of the thoracic aorta, mild pulmonary venous hypertension, no infiltrates seen, mediastinal silhouette is otherwise unremarkable. ASSESSMENT AND PLAN: This is an 84-year-old, DO NOT RESUSCITATE, DO NOT INTUBATE, female with hypertensive heart disease, advanced dementia, obesity with body mass index (BMI) of 41, who lives at [facility] with chronic kidney disease stage III and hypothyroidism who presented to the emergency room after complaining of acute onset of chest pain and found to have an acute inferior wall myocardial infarction. She was admitted to the progressive care unit (PCU) and was found on telemetry to have a new onset of atrial fibrillation which responded to metoprolol. The patient did receive one dose of intravenous digoxin on the first day. She remained chest pain free after nitroglycerin was given and blood pressure had improved. The patient's troponin has steadily decreased. On admission in the emergency room, the patient's health care proxy, Bharti, had opted to remain at [facility] for medical management and did not want the mother to be transferred for coronary angiogram in [place]. The patient currently is stable with decreasing troponin and chest pain free since admission with the following issues. Acute inferior wall myocardial infarction with subsequent atrial fibrillation which is new onset.per cardiology continue asa, lipitor,beta sean dc plavix, ok to start on eliquis as oupt. completed 5 days lovenox. Atrial fibrillation with rapid ventricular rate.continue asa eliquis beta sean Chronic kidney disease stage III, at baseline creatinine. Hypothyroidism. On chronic Synthroid. Hypertensive heart disease: on ramipril.dc nitropaste, titrate meds for bp control. Morbid obesity. BMI 41.5, complicating her care. Advanced dementia. On Namenda 10 mg twice a day. The patient is requiring a sitter due to her wandering nature. disposition: dc to [facility] keep once bp stable off nitropaste.. VS, I&O, 24H, Fishbone Vital Signs/I&O Vital Signs Date Time Temp Pulse Resp B/P (MAP) Pulse Ox O2 Delivery O2 Flow Rate FiO2 08/01/19 21:07 84 149/83 08/01/19 06:00 97.6 18 94 07/27/19 10:25 Room Air 07/27/19 09:59 2.0 I&O- Last 24 Hours up to 6 AM 08/01/19 06:00 Intake Total 480 ml Output Total 200 ml Balance 280 ml Laboratory Data 24H LABS Laboratory Tests 2 08/01/19 06:23: Nucleated Red Blood Cells % (auto) 0.0, Blood Urea Nitrogen 18, Creatinine 0.89, Sodium Level 138, Potassium Level 4.2, Chloride Level 102, Carbon Dioxide Level 29, Anion Gap 7L, Glomerular Filtration Rate > 60.0, Calcium Level 9.3, Phosphorus Level 3.1, Total Creatine Kinase 40, Creatine Kinase MB 1.2, Creatine Kinase MB Relative Index 3.00, Troponin I 2.43*H, Albumin 2.8L CBC/BMP Laboratory Tests 08/01/19 06:23 Red Blood Count 4.41, Mean Corpuscular Volume 94.8, Mean Corpuscular Hemoglobin 30.4, Mean Corpuscular Hemoglobin Concent 32.1, Red Cell Distribution Width 13.9, Anion Gap 7 L ANNA HERNANDEZ MD Aug 01, 2019 21:28
[2019-08-02 06:00] VITALS: BP 141/86
[2019-08-02] MEDS: LEVOTHYROXINE 50MCG TABLET (0.05MG) PO SCH (06:22)
[2019-08-02 06:37] LABS: HEMATOCRIT 41.3 % (36.0-47.0); HEMOGLOBIN 13.5 g/dl (12.0-15.5); MEAN CORPUSCULAR HEMOGLOBIN 30.5 pg (27.0-33.0); MEAN CORPUSCULAR HGB CONC 32.7 g/dl (32.0-36.5); MEAN CORPUSCULAR VOLUME 93.2 fl (80.0-96.0); PLATELET COUNT, AUTOMATED 252 10^3/uL (150-450); RED BLOOD COUNT 4.43 10^6/uL (4.00-5.40); WHITE BLOOD COUNT 8.7 10^3/uL (4.0-10.0)
[2019-08-02 07:00] LABS: ALBUMIN 2.7 GM/DL (3.2-5.2); BLOOD UREA NITROGEN 18 MG/DL (7-18); CALCIUM LEVEL 9.4 MG/DL (8.8-10.2); CARBON DIOXIDE LEVEL 26 MEQ/L (21-32); CHLORIDE LEVEL 105 MEQ/L (98-107); CREATININE FOR GFR 0.75 MG/DL (0.55-1.30); GLOMERULAR FILTRATION RATE > 60.0 (>32); GLUCOSE, FASTING 103 MG/DL (70-100); PHOSPHORUS LEVEL 3.2 MG/DL (2.5-4.9); POTASSIUM SERUM 4.2 MEQ/L (3.5-5.1); SODIUM LEVEL 139 MEQ/L (136-145)
[2019-08-02] MEDS: VITAMIN D 1,000 INTERNATIONAL UNITS TABLET PO SCH (08:45)
[2019-08-02] MEDS: ASPIRIN 81 MG CHEW TABLET PO SCH (08:46)
[2019-08-02] MEDS: ATORVASTATIN 20 MG TAB PO SCH (08:46)
[2019-08-02] MEDS: APIXABAN 5 MG TAB (ELIQUIS) PO SCH (08:46)
[2019-08-02] MEDS: PANTOPRAZOLE 40MG TAB (PROTONIX) PO SCH (08:46)
[2019-08-02] MEDS: MEMANTINE 5MG TABLET (NAMENDA) PO SCH (08:49)
[2019-08-02] MEDS: DIVALPROEX SPRINKLE 125 MG CAP PO SCH (08:49)
[2019-08-02 08:50] VITALS: BP 188/96
[2019-08-02] MEDS: amLODIPine 5 MG TAB PO SCH (08:50)
[2019-08-02] MEDS: ATENOLOL 50 MG TAB PO SCH (08:50)
[2019-08-02] MEDS: RAMIPRIL 1.25 MG CAP PO SCH (08:51)
[2019-08-02 11:16] VITALS: BP 122/80
[2019-08-02] MEDS ORDERED: ATOR1TAB21 PO (11:31)
[2019-08-02] MEDS ORDERED: PANT40TA3 PO (11:31)
[2019-08-02] MEDS ORDERED: ATEN50TA2 PO (11:31)
[2019-08-02] MEDS ORDERED: ASPI81CH8 PO (11:31)
[2019-08-02] MEDS ORDERED: ALTA1CAP PO (11:31)
[2019-08-02] MEDS ORDERED: AMLO5TAB6 PO (11:31)
[2019-08-02] MEDS ORDERED: ELIQ5TAB PO (11:31)
[2019-08-02] MEDS ORDERED: NITR4TASL SL (11:31)
--- NOTE | 2019-08-02 23:48 | DS.PDOC ---
Discharge Summary General Date of Admission Jul 27, 2019 at 10:49 Date of Discharge 08/02/19 Discharge Summary PROCEDURES PERFORMED DURING STAY: [None]. DISCHARGE DIAGNOSES: Acute inferior wall myocardial infarction New onset atrial fibrillation Diastolic CHF. Mild to moderate pulmonary hypertension. SECONDARY DIAGNOSIS: Hypertension with hypertensive heart disease, advanced dementia, Morbid obesity with body mass index (BMI) of 41, chronic kidney disease stage III and hypothyroidism COMPLICATIONS/CHIEF COMPLAINT: Acute Mi. HISTORY OF PRESENT ILLNESS: See history and physical HOSPITAL COURSE: This is an 84-year-old, DO NOT RESUSCITATE, DO NOT INTUBATE, female with hypertensive heart disease, advanced dementia, obesity with body mass index (BMI) of 41, who lives at [facility] with chronic kidney disease stage III and hypothyroidism who presented to the emergency room after complaining of acute onset of chest pain and found to have an acute inferior wall myocardial infarction. She was admitted to the progressive care unit (PCU) and was found on telemetry to have a new onset of atrial fibrillation which responded to metoprolol. The patient did receive one dose of intravenous digoxin on the first day. She remained chest pain free after nitroglycerin was given and blood pressure had improved. The patient's troponin has steadily decreased. On admission in the emergency room, the patient's health care proxy, Bharti, had opted to remain at [facility] for medical management and did not want the mother to be transferred for coronary angiogram in [place]. The patient currently is stable with decreasing troponin and chest pain free since admission with the following issues. Acute inferior wall myocardial infarction with subsequent atrial fibrillation which is new onset. Managed medically, Family did not want any intervention. per cardiology continue asa, lipitor,beta sean and eliquis as oupt. completed 5 days lovenox. Atrial fibrillation with rapid ventricular rate. continue asa, eliquis, beta sean Chronic kidney disease stage III at baseline creatinine. Hypothyroidism. On chronic Synthroid. Hypertension with Hypertensive heart disease: onamlodipine and ramipril. Morbid obesity. BMI 41.5, complicating her care. Advanced dementia with wandering stays in [facility] unit. On Namenda 10 mg twice a day. Diastolic CHF euvolemic at present watch for fluid overload. DISCHARGE MEDICATIONS: Please see below. ALLERGIES: Please see below. PHYSICAL EXAMINATION ON DISCHARGE: VITAL SIGNS: Please see below. GENERAL: Awake , alert sitting up in chair, cooperative. In no acute distress. HEENT: Moist mucous membranes, anicteric eyes NECK: She has no jugular venous distention (JVD). No thyromegaly. No cervical lymphadenopathy. LUNGS: Clear to auscultation. No wheezing, rales or ronchi. HEART: S1 and S2, irregularly irregular, No murmurs, rubs or gallops. ABDOMEN: Obese, soft, nontender, nondistended, normal bowel sounds. EXTREMITIES: No cyanosis or clubbing. No peripheral edema. NEURO: no focal neurodeficits, wae and alert but not oriented to place or time. LABORATORY DATA: Please see below. IMAGIN07/27/2019 chest x-ray with mild calcification and tortuosity of the thoracic aorta, mild pulmonary venous hypertension, no infiltrates seen, mediastinal silhouette is otherwise unremarkable. ACTIVITY: [As tolerated]. DIET: As tolerated DISCHARGE PLAN: Dementia unit of [facility] DISPOSITION: [facility]. DISCHARGE INSTRUCTIONS: Follow up with MD at shelter. DISCHARGE CONDITION: [Stable]. TIME SPENT ON DISCHARGE: 35 minutes. Vital Signs/I&Os Vital Signs Date Time Temp Pulse Resp B/P (MAP) Pulse Ox O2 Delivery O2 Flow Rate FiO2 08/02/19 11:16 122/80 (94) 08/02/19 08:50 80 08/02/19 06:00 98.7 17 95 07/27/19 10:25 Room Air 07/27/19 09:59 2.0 I&O- Last 24 Hours up to 6 AM 08/02/19 06:00 Intake Total 1016 ml Output Total 300 ml Balance 716 ml Laboratory Data Labs 24H Laboratory Tests 2 08/02/19 06:26: Nucleated Red Blood Cells % (auto) 0.0, Blood Urea Nitrogen 18, Creatinine 0.75, Sodium Level 139, Potassium Level 4.2, Chloride Level 105, Carbon Dioxide Level 26, Anion Gap 8, Glomerular Filtration Rate > 60.0, Calcium Level 9.4, Phosphorus Level 3.2, Albumin 2.7L CBC/BMP Laboratory Tests 08/02/19 06:26 Red Blood Count 4.43, Mean Corpuscular Volume 93.2, Mean Corpuscular Hemoglobin 30.5, Mean Corpuscular Hemoglobin Concent 32.7, Red Cell Distribution Width 13.9, Anion Gap 8 Discharge Medications Scheduled Amlodipine Besylate (Amlodipine Besylate) 5 Mg Tablet, 5 MG PO BID Apixaban (Eliquis) 5 Mg Tablet, 5 MG PO BID Aspirin (Children's Aspirin) 81 Mg Tab.chew, 81 MG PO DAILY Atenolol (Atenolol) 50 Mg Tablet, 50 MG PO BID Atorvastatin Calcium (Atorvastatin Calcium) 20 Mg Tablet, 40 MG PO QHS Cholecalciferol (Vitamin D3) (Vitamin D3) 1,000 Unit Tab.chew, 2,000 UNIT PO DAILY, (Reported) Divalproex Sodium (Divalproex Sodium) 125 Mg Cap.dr.spr, 125 MG PO DAILY, (Reported) Levothyroxine Sodium (Synthroid) 50 Mcg Tablet, 50 MCG PO QAM, (Reported) Memantine HCl (Memantine HCl) 10 Mg Tablet, 10 MG PO BID, (Reported) Pantoprazole Sodium (Pantoprazole Sodium) 40 Mg Tablet.dr, 40 MG PO DAILY Ramipril (Altace) 1.25 Mg Capsule, 1.25 MG PO DAILY Scheduled PRN Acetaminophen (Tylenol) 325 Mg Tablet, 650 MG PO Q4H PRN for PAIN / FEVER, (Reported) Bisacodyl (Dulcolax) 10 Mg Supp.rect, [address] DAILY PRN for CONSTIPATION, (Reported) Milk Of Magnesia (Milk of Magnesia) 2,400 Mg/10 Ml Oral.susp, 30 ML PO DAILY PRN for CONSTIPATION, (Reported) Nitroglycerin (Nitrostat) 0.4 Mg Tab.subl, 0.4 MG SL Q5MP PRN for ANGINA Sodium Phosphate,[place]-Dibasic (Enema) 133 Ml Enema, [address] DAILY PRN for CONSTIPATION, (Reported) Allergies Coded Allergies: No Known Drug Allergies (Verified Allergy, Unknown, 07/27/19) TERENCE DANIEL MD Aug 02, 2019 23:48
== END 2019-08-02 12:47 | DRG 281 ==
LOC: EDBD 09:40 → EDSEX 09:40 → M ED 09:40 → M ED INP 10:49 → M ICU 12:17 → M PCU 07-28 17:04 → M MSPAV 07-31 19:59
PROVIDERS: ADMIT General Practice; ATTEND Internal Medicine Nephrology
DX: I21.19 ST elevation (STEMI) myocardial infarction involving other coronary artery of inferior wall (principal); Z68.41 Body mass index [BMI] 40.0-44.9, adult; I48.92 Unspecified atrial flutter; I13.10 Hypertensive heart and chronic kidney disease without heart failure, with stage 1 through stage 4 chronic kidney disease, or unspecified chronic kidney disease; G30.9 Alzheimer's disease, unspecified; F02.80 Dementia in other diseases classified elsewhere, unspecified severity, without behavioral disturbance, psychotic disturbance, mood disturbance, and anxiety; N18.3 Chronic kidney disease, stage 3 (moderate); E03.9 Hypothyroidism, unspecified; E55.9 Vitamin D deficiency, unspecified; Z66 Do not resuscitate; K21.9 Gastro-esophageal reflux disease without esophagitis; E66.01 Morbid (severe) obesity due to excess calories; Z90.49 Acquired absence of other specified parts of digestive tract; Z90.710 Acquired absence of both cervix and uterus; Z79.899 Other long term (current) drug therapy

== ENCOUNTER → 2019-07-27 | Outpatient (REF) | payer MEDICARE ==
[~2019-07-27] MED LIST changes: -MEMA10TA19 PO; +MEMA1TAB2 PO
[2019-07-27 08:58] LABS: HEMATOCRIT 44.1 % (36.0-47.0); HEMOGLOBIN 14.4 g/dl (12.0-15.5); MEAN CORPUSCULAR HEMOGLOBIN 31.2 pg (27.0-33.0); MEAN CORPUSCULAR HGB CONC 32.7 g/dl (32.0-36.5); MEAN CORPUSCULAR VOLUME 95.7 fl (80.0-96.0); PLATELET COUNT, AUTOMATED 243 10^3/uL (150-450); RED BLOOD COUNT 4.61 10^6/uL (4.00-5.40); WHITE BLOOD COUNT 7.7 10^3/uL (4.0-10.0)
[2019-07-27 09:25] LABS: CPK CREATINE PHOSPHOKINASE 37 U/L (26-192); TROPONIN I < 0.02 NG/ML (< 0.10)
--- NOTE | 2019-07-27 10:50 | ECGEPIP ---
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 Order Number: [id number] Reading MD: Cory English Measurements Intervals [place] Rate: 69 P: 33 DE: 183 QRS: 36 QRSD: 94 T: 34 QT: 393 QTc: 422 Interpretive Statements SINUS RHYTHM INFERIOR MYOCARDIAL INFARCTION, Suspect ACUTE ACUTE IA Comparison tracing not on file Electronically Signed on 07-27-2019 10:50:28 EDT by Cory English
== END ==
LOC: SKLAB8 07:00
PROVIDERS: ATTEND Internal Medicine
DX: Z79.899 Other long term (current) drug therapy (principal)

== ENCOUNTER → 2021-05-07 | Outpatient (REF) | payer MEDICARE, MEDICAID ==
[~2021-05-07] MED LIST changes: +AMLO1TAB24 PO; -AMLO5TAB6 PO; +MEMA10TA19 PO; -MEMA1TAB2 PO; +PANT40TA29 PO; -PANT40TA3 PO
[2021-05-07 07:23] LABS: HEMATOCRIT 41.1 % (36.0-47.0); HEMOGLOBIN 13.2 g/dl (12.0-15.5); MEAN CORPUSCULAR HEMOGLOBIN 29.9 pg (27.0-33.0); MEAN CORPUSCULAR HGB CONC 32.1 g/dl (32.0-36.5); PLATELET COUNT, AUTOMATED 240 10^3/uL (150-450); RED BLOOD COUNT 4.42 10^6/uL (4.00-5.40); WHITE BLOOD COUNT 7.6 10^3/uL (4.0-10.0)
[2021-05-07 07:57] LABS: ALBUMIN 3.1 GM/DL (3.2-5.2); ALT/SGPT 15 U/L (12-78); BILIRUBIN,TOTAL 0.6 MG/DL (0.2-1.0); BLOOD UREA NITROGEN 15 MG/DL (7-18); CALCIUM LEVEL 8.8 MG/DL (8.8-10.2); CARBON DIOXIDE LEVEL 26 MEQ/L (21-32); CHLORIDE LEVEL 107 MEQ/L (98-107); CHOLESTEROL LEVEL 136 MG/DL (<200); CHOLESTEROL RISK RATIO 3.777 (<5); CREATININE FOR GFR 0.71 MG/DL (0.55-1.30); GLOMERULAR FILTRATION RATE > 60.0 (>32); GLUCOSE, FASTING 105 MG/DL (70-100); HDL CHOLESTEROL 36 MG/DL (>40); LDL CHOLESTEROL 83 MG/DL (<100); NON-HDL-C 100 MG/DL; POTASSIUM SERUM 4.3 MEQ/L (3.5-5.1); SODIUM LEVEL 140 MEQ/L (136-145); TOTAL PROTEIN 6.9 GM/DL (6.4-8.2); TRIGLYCERIDES LEVEL 85 MG/DL (<150); VALPROIC ACID (DEPAKOTE) 6.6 UG/ML (50.0-100.0)
[2021-05-07 09:28] LABS: TOTAL 25(OH) VITAMIN D 50.4 NG/ML (30.0-100.0)
== END ==
LOC: SKLAB8 05-04 07:00
PROVIDERS: ATTEND Internal Medicine
DX: Z51.81 Encounter for therapeutic drug level monitoring (principal); I10 Essential (primary) hypertension; E78.5 Hyperlipidemia, unspecified

== ENCOUNTER → 2021-08-29 | Outpatient (REF) | payer MEDICARE, MEDICAID | LOC: SKLAB8 10:00 | PROVIDERS: ATTEND Internal Medicine | DX: Z20.822 Contact with and (suspected) exposure to COVID-19 (principal) ==

== ENCOUNTER → 2021-09-02 | Outpatient (REF) | payer MEDICARE, MEDICAID | LOC: SKLAB8 07:13 | PROVIDERS: ATTEND Internal Medicine | DX: Z20.822 Contact with and (suspected) exposure to COVID-19 (principal) ==

== ENCOUNTER → 2021-09-05 | Outpatient (REF) | payer MEDICARE, MEDICAID | LOC: SKLAB8 05:35 | PROVIDERS: ATTEND Internal Medicine | DX: Z20.822 Contact with and (suspected) exposure to COVID-19 (principal) ==

== ENCOUNTER → 2021-09-09 | Outpatient (REF) | payer MEDICARE, MEDICAID | LOC: SKLAB8 06:17 | PROVIDERS: ATTEND Internal Medicine | DX: Z20.822 Contact with and (suspected) exposure to COVID-19 (principal) ==

== ENCOUNTER → 2021-09-12 | Outpatient (REF) | payer MEDICARE, MEDICAID | LOC: SKLAB8 06:31 | PROVIDERS: ATTEND Internal Medicine | DX: Z20.822 Contact with and (suspected) exposure to COVID-19 (principal) ==

== ENCOUNTER → 2021-09-18 | Outpatient (REF) | payer MEDICARE, MEDICAID | LOC: SKLAB8 06:15 | PROVIDERS: ATTEND Internal Medicine | DX: Z20.822 Contact with and (suspected) exposure to COVID-19 (principal) ==

== ENCOUNTER → 2021-09-25 | Outpatient (REF) | payer MEDICARE, MEDICAID | LOC: SKLAB8 08:20 | PROVIDERS: ATTEND Internal Medicine | DX: Z20.822 Contact with and (suspected) exposure to COVID-19 (principal) ==

== ENCOUNTER → 2021-10-16 | Outpatient (REF) | payer MEDICARE, MEDICAID | LOC: SKLAB8 08:30 | PROVIDERS: ATTEND Internal Medicine | DX: Z20.822 Contact with and (suspected) exposure to COVID-19 (principal) ==

== ENCOUNTER → 2021-10-23 | Outpatient (REF) | payer MEDICARE, MEDICAID | LOC: SKLAB8 14:21 | PROVIDERS: ATTEND Internal Medicine | DX: Z20.822 Contact with and (suspected) exposure to COVID-19 (principal) ==

== ENCOUNTER → 2021-10-24 | Outpatient (REF) | payer MEDICARE, MEDICAID ==
[2021-10-24 11:45] LABS: HEMATOCRIT 44.2 % (36.0-47.0); HEMOGLOBIN 13.9 g/dl (12.0-15.5); MEAN CORPUSCULAR HEMOGLOBIN 30.3 pg (27.0-33.0); MEAN CORPUSCULAR HGB CONC 31.4 g/dl (32.0-36.5); MEAN CORPUSCULAR VOLUME 96.3 fl (80.0-96.0); PLATELET COUNT, AUTOMATED 242 10^3/uL (150-450); RED BLOOD COUNT 4.59 10^6/uL (4.00-5.40)
[2021-10-24 12:29] LABS: ALBUMIN 3.1 GM/DL (3.2-5.2); ALT/SGPT 18 U/L (12-78); BILIRUBIN,TOTAL 0.7 MG/DL (0.2-1.0); BLOOD UREA NITROGEN 16 MG/DL (7-18); CALCIUM LEVEL 9.8 MG/DL (8.8-10.2); CARBON DIOXIDE LEVEL 31 MEQ/L (21-32); CHLORIDE LEVEL 103 MEQ/L (98-107); CREATININE FOR GFR 0.71 MG/DL (0.55-1.30); GLOMERULAR FILTRATION RATE > 60.0 (>32); GLUCOSE, FASTING 77 MG/DL (70-100); POTASSIUM SERUM 4.2 MEQ/L (3.5-5.1); SODIUM LEVEL 140 MEQ/L (136-145); TOTAL 25(OH) VITAMIN D 40.6 NG/ML (30.0-100.0); TOTAL PROTEIN 7.5 GM/DL (6.4-8.2); VALPROIC ACID (DEPAKOTE) 13.3 UG/ML (50.0-100.0)
== END ==
LOC: SKLAB8 07:00
PROVIDERS: ATTEND Internal Medicine
DX: Z51.81 Encounter for therapeutic drug level monitoring (principal); I10 Essential (primary) hypertension; Z79.899 Other long term (current) drug therapy

== ENCOUNTER → 2021-10-30 | Outpatient (REF) | payer MEDICARE, MEDICAID | LOC: SKLAB8 14:41 | PROVIDERS: ATTEND Internal Medicine | DX: Z20.822 Contact with and (suspected) exposure to COVID-19 (principal) ==

== ENCOUNTER → 2021-11-06 | Outpatient (REF) | payer MEDICARE, MEDICAID | LOC: SKLAB8 14:13 | PROVIDERS: ATTEND Internal Medicine | DX: Z20.822 Contact with and (suspected) exposure to COVID-19 (principal) ==

== ENCOUNTER → 2021-11-13 | Outpatient (REF) | payer MEDICARE, MEDICAID ==
[~2021-11-13] MED LIST changes: +DIVA125C6 PO; -DIVA1CAP PO
== END ==
LOC: SKLAB8 06:02
PROVIDERS: ATTEND Internal Medicine
DX: Z20.822 Contact with and (suspected) exposure to COVID-19 (principal)

== ENCOUNTER → 2022-01-23 | Outpatient (REF) | payer MEDICARE, MEDICAID | LOC: SKLAB8 07:00 | PROVIDERS: ATTEND Internal Medicine | DX: Z79.899 Other long term (current) drug therapy (principal) ==

== ENCOUNTER 2022-03-05 11:29 | Emergency (ER) | payer MEDICARE, MEDICAID ==
[~2022-03-05] VITALS: Ht 154.9 cm; Wt 83.6 kg
[2022-03-05 11:56] VITALS: BP 126/71
[2022-03-05] MEDS ORDERED: ELIQ5TAB PO (12:17)
[2022-03-05] MEDS ORDERED: ATOR40TA75 PO (12:17)
[2022-03-05] MEDS ORDERED: ASPI81CH33 PO (12:17)
[2022-03-05] MEDS ORDERED: NITR4TASL SL (12:17)
[2022-03-05] MEDS ORDERED: LEVO75TA4 PO (12:17)
[2022-03-05] MEDS ORDERED: ATEN50TA2 PO (12:17)
[2022-03-05] MEDS ORDERED: HOME MED LIST COMPLETE! XX SCH (12:20)
[2022-03-05] MEDS ORDERED: LIDOCAINE W/EPINEPHRINE 1% 20ML VIAL SC ONE (12:30)
[2022-03-05] MEDS ORDERED: BOOSTRIX/ADACEL VACCINE (DIPHTH/PERTUSS/ACELL/TETANUS) 0.5ML SYR IM ONE (13:05)
== END 2022-03-05 15:35 | disposition home or self-care (01) ==
LOC: EDBD 11:29 → M ED 11:29
DX: S01.81XA Laceration without foreign body of other part of head, initial encounter (principal); W07.XXXA Fall from chair, initial encounter; Y92.128 Other place in nursing home as the place of occurrence of the external cause; I12.9 Hypertensive chronic kidney disease with stage 1 through stage 4 chronic kidney disease, or unspecified chronic kidney disease; N18.30 Chronic kidney disease, stage 3 unspecified; G30.9 Alzheimer's disease, unspecified; I25.10 Atherosclerotic heart disease of native coronary artery without angina pectoris; K21.9 Gastro-esophageal reflux disease without esophagitis; E66.8 Other obesity; Z79.899 Other long term (current) drug therapy; Z79.82 Long term (current) use of aspirin; Z79.01 Long term (current) use of anticoagulants; Z79.890 Hormone replacement therapy

== ENCOUNTER → 2022-07-24 | Outpatient (REF) | payer MEDICARE, MEDICAID ==
[~2022-07-24] MED LIST changes: +ASPI81CH33 PO; +ATOR40TA75 PO; +LEVO75TA4 PO
== END ==
LOC: SKLAB8 07:00
PROVIDERS: ATTEND Internal Medicine
DX: Z79.899 Other long term (current) drug therapy (principal)

== ENCOUNTER → 2022-08-02 | Outpatient (REF) | LOC: SKLAB8 06:59 | PROVIDERS: ATTEND Internal Medicine | DX: M79.89 Other specified soft tissue disorders (principal) ==

== ENCOUNTER → 2022-08-03 | Outpatient (REF) | LOC: SKLAB8 10:17 | PROVIDERS: ATTEND Internal Medicine | DX: M79.89 Other specified soft tissue disorders (principal); Z53.8 Procedure and treatment not carried out for other reasons ==

== ENCOUNTER → 2022-08-28 | Outpatient (REF) | payer MEDICARE, MEDICAID ==
[2022-08-28 16:23] LABS: PTH INTACT 48.5 PG/ML (18.5-88.0)
== END ==
LOC: SKLAB8 10:00
PROVIDERS: ATTEND Internal Medicine
DX: N18.9 Chronic kidney disease, unspecified (principal); Z79.899 Other long term (current) drug therapy

== ENCOUNTER → 2022-09-07 | Outpatient (REF) | LOC: SKLAB8 13:12 | PROVIDERS: ATTEND Internal Medicine | DX: M79.89 Other specified soft tissue disorders (principal) ==

== ENCOUNTER → 2022-10-15 | Outpatient (REF) | payer MEDICARE, MEDICAID | LOC: SKLAB8 15:35 | PROVIDERS: ATTEND Internal Medicine | DX: R05.9 Cough, unspecified (principal) ==

== ENCOUNTER → 2022-11-27 | Outpatient (REF) | payer MEDICARE, MEDICAID ==
[2022-11-27 08:40] LABS: HEMATOCRIT 38.1 % (36.0-47.0); HEMOGLOBIN 12.1 g/dl (12.0-15.5); MEAN CORPUSCULAR HEMOGLOBIN 30.6 pg (27.0-33.0); MEAN CORPUSCULAR HGB CONC 31.8 g/dl (32.0-36.5); MEAN CORPUSCULAR VOLUME 96.5 fl (80.0-96.0); PLATELET COUNT, AUTOMATED 213 10^3/uL (150-450); RED BLOOD COUNT 3.95 10^6/uL (4.00-5.40); WHITE BLOOD COUNT 8.1 10^3/uL (4.0-10.0)
[2022-11-27 09:07] LABS: TOTAL 25(OH) VITAMIN D 43.5 NG/ML (20.0-100.0)
[2022-11-27 09:08] LABS: ALBUMIN 2.7 G/DL (3.2-5.2); ALKALINE PHOSPHATASE 102 U/L (46-116); ALT/SGPT 14 U/L (7.0-40); AST/SGOT 15 U/L (<34); BILIRUBIN,TOTAL 0.5 MG/DL (0.3-1.2); BLOOD UREA NITROGEN 17 MG/DL (9-23); CARBON DIOXIDE LEVEL 27 MMOL/L (20-31); CHLORIDE LEVEL 105 MMOL/L (98-107); CREATININE FOR GFR 0.68 MG/DL (0.55-1.30); GLOMERULAR FILTRATION RATE > 60.0 (>32); GLUCOSE, FASTING 91 MG/DL (74-106); POTASSIUM SERUM 4.5 MMOL/L (3.5-5.1); SODIUM LEVEL 140 MMOL/L (136-145); TOTAL PROTEIN 6.2 G/DL (5.7-8.2)
== END ==
LOC: SKLAB8 07:00
PROVIDERS: ATTEND Internal Medicine
DX: I10 Essential (primary) hypertension (principal); Z79.899 Other long term (current) drug therapy

== ENCOUNTER → 2022-12-31 | Outpatient (REF) | payer MEDICARE, MEDICAID | LOC: SKLAB8 07:49 | PROVIDERS: ATTEND Internal Medicine | DX: M25.562 Pain in left knee (principal) ==

== ENCOUNTER → 2023-02-10 | Outpatient (REF) | payer MEDICARE, MEDICAID ==
[2023-02-11 00:05] LABS: APPEARANCE, URINE CLOUDY (CLEAR); BACTERIA, URINE AUTO 1+ (NEGATIVE); BILIRUBIN, URINE AUTO NEGATIVE (NEGATIVE); BLOOD, URINE BLOOD NEGATIVE (NEGATIVE); CALCIUM OXALATE CRYSTALS MODERATE; COLOR, URINE YELLOW (YELLOW); GLUCOSE, URINE (UA) AUTO NEGATIVE (NEGATIVE); KETONE, URINE AUTO TRACE mg/dL (NEGATIVE); LEUKOCYTE ESTERASE, URINE AUTO TRACE (NEGATIVE); MUCUS, URINE SMALL (NEGATIVE); NITRITE, URINE AUTO NEGATIVE (NEGATIVE); PROTEIN, URINE AUTO NEGATIVE (NEGATIVE); RBC, URINE AUTO 2 /HPF (0-3); SPECIFIC GRAVITY URINE AUTO 1.029 (1.002-1.035); SQUAMOUS EPITHELIAL CELL UR AU 19 /HPF (0-6); UROBILINOGEN, URINE AUTO 0.2 mg/dL (0.0-2.0); WBC, URINE AUTO 8 /HPF (0-3)
== END ==
LOC: SKLAB8 21:00
PROVIDERS: ATTEND Internal Medicine
DX: R32 Unspecified urinary incontinence (principal); R58 Hemorrhage, not elsewhere classified

== ENCOUNTER → 2023-02-26 | Outpatient (REF) | payer MEDICARE, MEDICAID | LOC: SKLAB8 07:00 | PROVIDERS: ATTEND Internal Medicine | DX: E55.9 Vitamin D deficiency, unspecified (principal); Z79.899 Other long term (current) drug therapy ==

== ENCOUNTER → 2023-03-28 | Outpatient (REF) | payer MEDICARE, MEDICAID ==
[2023-03-28 08:13] LABS: HEMATOCRIT 39.6 % (36.0-47.0); MEAN CORPUSCULAR HEMOGLOBIN 31.1 pg (27.0-33.0); MEAN CORPUSCULAR HGB CONC 32.8 g/dl (32.0-36.5); MEAN CORPUSCULAR VOLUME 94.7 fl (80.0-96.0); PLATELET COUNT, AUTOMATED 203 10^3/uL (150-450); RED BLOOD COUNT 4.18 10^6/uL (4.00-5.40); WHITE BLOOD COUNT 15.4 10^3/uL (4.0-10.0)
[2023-03-28 08:41] LABS: ALKALINE PHOSPHATASE 96 U/L (46-116); ALT/SGPT 12 U/L (7.0-40); AST/SGOT 19 U/L (<34); BILIRUBIN,TOTAL 0.8 MG/DL (0.3-1.2); BLOOD UREA NITROGEN 18 MG/DL (9-23); CARBON DIOXIDE LEVEL 24 MMOL/L (20-31); CHLORIDE LEVEL 105 MMOL/L (98-107); CREATININE FOR GFR 0.77 MG/DL (0.55-1.30); GLOMERULAR FILTRATION RATE > 60.0 (>32); GLUCOSE, FASTING 124 MG/DL (74-106); POTASSIUM SERUM 4.2 MMOL/L (3.5-5.1); SODIUM LEVEL 138 MMOL/L (136-145); TOTAL PROTEIN 7.3 G/DL (5.7-8.2)
== END ==
LOC: SKLAB8 07:00
PROVIDERS: ATTEND Internal Medicine
DX: U07.1 COVID-19 (principal); Z79.899 Other long term (current) drug therapy

== ENCOUNTER → 2023-04-23 | Outpatient (REF) | payer MEDICARE, MEDICAID ==
[2023-04-23 10:33] LABS: HEMATOCRIT 39.4 % (36.0-47.0); HEMOGLOBIN 12.6 g/dl (12.0-15.5); PLATELET COUNT, AUTOMATED 236 10^3/uL (150-450); RED BLOOD COUNT 4.06 10^6/uL (4.00-5.40); WHITE BLOOD COUNT 6.6 10^3/uL (4.0-10.0)
[2023-04-23 10:58] LABS: ALKALINE PHOSPHATASE 95 U/L (46-116); ALT/SGPT 12 U/L (7.0-40); AST/SGOT 9 U/L (<34); BILIRUBIN,TOTAL 0.4 MG/DL (0.3-1.2); BLOOD UREA NITROGEN 18 MG/DL (9-23); CALCIUM LEVEL 9.9 MG/DL (8.3-10.6); CARBON DIOXIDE LEVEL 24 MMOL/L (20-31); CHLORIDE LEVEL 105 MMOL/L (98-107); CHOLESTEROL LEVEL 121 MG/DL (<200); CHOLESTEROL RISK RATIO 3.89 (<5); CREATININE FOR GFR 0.68 MG/DL (0.55-1.30); GLOMERULAR FILTRATION RATE > 60.0 (>32); GLUCOSE, FASTING 136 MG/DL (74-106); HDL CHOLESTEROL 31.1 MG/DL (>40); LDL CHOLESTEROL 65.3 MG/DL (<100); NON-HDL-C 89.9 MG/DL; SODIUM LEVEL 138 MMOL/L (136-145); TOTAL PROTEIN 6.8 G/DL (5.7-8.2); TRIGLYCERIDES LEVEL 123 MG/DL (<150)
[2023-04-23 10:59] LABS: THYROID STIMULATING HORMONE 1.515 uIU/ML (0.55-4.78)
== END ==
LOC: SKLAB8 07:00
PROVIDERS: ATTEND Internal Medicine
DX: I10 Essential (primary) hypertension (principal); Z51.81 Encounter for therapeutic drug level monitoring; E78.5 Hyperlipidemia, unspecified

== ENCOUNTER → 2023-05-13 | Outpatient (REF) | payer MEDICARE, MEDICAID | LOC: SKLAB8 14:32 | PROVIDERS: ATTEND Internal Medicine | DX: R22.41 Localized swelling, mass and lump, right lower limb (principal) ==

== ENCOUNTER → 2023-08-27 | Outpatient (REF) | payer MEDICARE, MEDICAID ==
[2023-09-01 08:44] LABS: PTH INTACT 36.4 PG/ML (18.5-88.0)
== END ==
LOC: SKLAB8 06:51
PROVIDERS: ATTEND Internal Medicine
DX: N18.9 Chronic kidney disease, unspecified (principal); Z79.899 Other long term (current) drug therapy

== ENCOUNTER → 2023-10-21 | Outpatient (REF) | payer MEDICARE, MEDICAID | LOC: SKLAB8 08:00 | PROVIDERS: ATTEND Registered Nurse | DX: S90.30XA Contusion of unspecified foot, initial encounter (principal); Z53.8 Procedure and treatment not carried out for other reasons ==

== ENCOUNTER → 2023-10-26 | Outpatient (REF) | payer MEDICARE, MEDICAID ==
[2023-10-26 09:59] LABS: MEAN CORPUSCULAR HEMOGLOBIN 27.5 pg (27.0-33.0); MEAN CORPUSCULAR HGB CONC 30.3 g/dl (32.0-36.5); MEAN CORPUSCULAR VOLUME 90.9 fl (80.0-96.0); PLATELET COUNT, AUTOMATED 304 10^3/uL (150-450); RED BLOOD COUNT 3.63 10^6/uL (4.00-5.40)
[2023-10-26 10:28] LABS: ALKALINE PHOSPHATASE 95 U/L (46-116); ALT/SGPT 15 U/L (7.0-40); AST/SGOT 12 U/L (<34); BILIRUBIN,TOTAL 0.4 MG/DL (0.3-1.2); BLOOD UREA NITROGEN 18 MG/DL (9-23); CARBON DIOXIDE LEVEL 27 MMOL/L (20-31); CHLORIDE LEVEL 105 MMOL/L (98-107); CREATININE FOR GFR 0.61 MG/DL (0.55-1.30); GLOMERULAR FILTRATION RATE > 60.0 (>32); GLUCOSE, FASTING 118 MG/DL (74-106); POTASSIUM SERUM 4.1 MMOL/L (3.5-5.1); SODIUM LEVEL 141 MMOL/L (136-145); TOTAL PROTEIN 7.2 G/DL (5.7-8.2)
== END ==
LOC: SKLAB8 08:57
PROVIDERS: ATTEND Internal Medicine
DX: T14.8XXA Other injury of unspecified body region, initial encounter (principal); Z79.899 Other long term (current) drug therapy

== ENCOUNTER → 2023-10-29 | Outpatient (REF) | payer MEDICARE, MEDICAID ==
[2023-10-29 09:33] LABS: HEMATOCRIT 30.1 % (36.0-47.0); HEMOGLOBIN 9.2 g/dl (12.0-15.5); MEAN CORPUSCULAR HEMOGLOBIN 27.5 pg (27.0-33.0); MEAN CORPUSCULAR HGB CONC 30.6 g/dl (32.0-36.5); MEAN CORPUSCULAR VOLUME 89.9 fl (80.0-96.0); PLATELET COUNT, AUTOMATED 295 10^3/uL (150-450); RED BLOOD COUNT 3.35 10^6/uL (4.00-5.40); WHITE BLOOD COUNT 19.5 10^3/uL (4.0-10.0)
[2023-10-29 10:18] LABS: ALBUMIN 2.9 G/DL (3.2-5.2); ALKALINE PHOSPHATASE 85 U/L (46-116); ALT/SGPT 9 U/L (7.0-40); AST/SGOT 13 U/L (<34); BILIRUBIN,TOTAL 0.4 MG/DL (0.3-1.2); BLOOD UREA NITROGEN 30 MG/DL (9-23); CALCIUM LEVEL 9.4 MG/DL (8.3-10.6); CARBON DIOXIDE LEVEL 28 MMOL/L (20-31); CHLORIDE LEVEL 104 MMOL/L (98-107); CREATININE FOR GFR 0.87 MG/DL (0.55-1.30); GLOMERULAR FILTRATION RATE > 60.0 (>32); GLUCOSE, FASTING 114 MG/DL (74-106); POTASSIUM SERUM 4.2 MMOL/L (3.5-5.1); SODIUM LEVEL 141 MMOL/L (136-145); THYROID STIMULATING HORMONE 2.185 uIU/ML (0.55-4.78); TOTAL PROTEIN 6.9 G/DL (5.7-8.2)
== END ==
LOC: SKLAB8 12:00
PROVIDERS: ATTEND Internal Medicine
DX: Z51.81 Encounter for therapeutic drug level monitoring (principal); I10 Essential (primary) hypertension

== ENCOUNTER → 2023-10-30 | Outpatient (REF) | payer MEDICARE, MEDICAID ==
[2023-10-30 07:22] LABS: HEMATOCRIT 26.7 % (36.0-47.0); HEMOGLOBIN 8.5 g/dl (12.0-15.5); MEAN CORPUSCULAR HGB CONC 31.8 g/dl (32.0-36.5); MEAN CORPUSCULAR VOLUME 87.8 fl (80.0-96.0); PLATELET COUNT, AUTOMATED 291 10^3/uL (150-450); RED BLOOD COUNT 3.04 10^6/uL (4.00-5.40); WHITE BLOOD COUNT 15.7 10^3/uL (4.0-10.0)
== END ==
LOC: SKLAB8 06:45
PROVIDERS: ATTEND Internal Medicine
DX: D64.9 Anemia, unspecified (principal)

== ENCOUNTER → 2023-11-04 | Outpatient (REF) | payer MEDICARE, MEDICAID ==
[2023-11-04 07:07] LABS: HEMATOCRIT 29.7 % (36.0-47.0); MEAN CORPUSCULAR HEMOGLOBIN 26.9 pg (27.0-33.0); MEAN CORPUSCULAR HGB CONC 30.3 g/dl (32.0-36.5); MEAN CORPUSCULAR VOLUME 88.9 fl (80.0-96.0); PLATELET COUNT, AUTOMATED 315 10^3/uL (150-450); RED BLOOD COUNT 3.34 10^6/uL (4.00-5.40); WHITE BLOOD COUNT 11.5 10^3/uL (4.0-10.0)
== END ==
LOC: SKLAB8 07:00
PROVIDERS: ATTEND Internal Medicine
DX: R31.9 Hematuria, unspecified (principal)

== ENCOUNTER → 2023-11-24 | Outpatient (REF) | payer MEDICARE, MEDICAID ==
[~2023-11-24] MED LIST changes: +FLEEENE12 PR; +GUAI100L6 PO; +IPRA0.00 INH; +NYST10OI TOP; +SENN1TAB94 PO; +SERT50TA29 PO; +[UNRECOGNIZED DRUG - CODE] TOP
== END ==
LOC: SKLAB8 07:35
PROVIDERS: ATTEND Internal Medicine
DX: I48.91 Unspecified atrial fibrillation (principal)

== ENCOUNTER → 2024-02-25 | Outpatient (REF) | payer MEDICARE, MEDICAID, OTHER ==
[~2024-02-25] MED LIST changes: +ATEN25TA PO; +CEFD1CAP9 PO; +MEMA10TA PO; -MEMA10TA19 PO; +NYST100084 TOP; -NYST10OI TOP; +SENN-130 PO; -SENN1TAB94 PO
== END ==
LOC: SKLAB8 06:46
PROVIDERS: ATTEND Internal Medicine
DX: E55.9 Vitamin D deficiency, unspecified (principal)

== ENCOUNTER → 2024-04-15 | Outpatient (REF) | payer MEDICARE, MEDICAID, OTHER ==
[2024-04-15 14:12] LABS: HEMATOCRIT 40.8 % (36.0-47.0); HEMOGLOBIN 12.6 g/dl (12.0-15.5); MEAN CORPUSCULAR HEMOGLOBIN 28.1 pg (27.0-33.0); MEAN CORPUSCULAR HGB CONC 30.9 g/dl (32.0-36.5); MEAN CORPUSCULAR VOLUME 91.1 fl (80.0-96.0); PLATELET COUNT, AUTOMATED 202 10^3/uL (150-450); RED BLOOD COUNT 4.48 10^6/uL (4.00-5.40); WHITE BLOOD COUNT 7.4 10^3/uL (4.0-10.0)
[2024-04-15 14:43] LABS: BLOOD UREA NITROGEN 22 MG/DL (9-23); CALCIUM LEVEL 9.7 MG/DL (8.3-10.6); CARBON DIOXIDE LEVEL 25 MMOL/L (20-31); CHLORIDE LEVEL 104 MMOL/L (98-107); CREATININE FOR GFR 0.72 MG/DL (0.55-1.30); GLOMERULAR FILTRATION RATE > 60.0 (>32); GLUCOSE, FASTING 116 MG/DL (74-106); POTASSIUM SERUM 4.3 MMOL/L (3.5-5.1); SODIUM LEVEL 137 MMOL/L (136-145)
== END ==
LOC: SKLAB8 13:21
PROVIDERS: ATTEND Internal Medicine
DX: R91.8 Other nonspecific abnormal finding of lung field (principal); J06.9 Acute upper respiratory infection, unspecified

== ENCOUNTER → 2024-04-28 | Outpatient (REF) | payer MEDICARE, MEDICAID, OTHER ==
[2024-04-28 09:16] LABS: HEMATOCRIT 42.5 % (36.0-47.0); HEMOGLOBIN 13.3 g/dl (12.0-15.5); MEAN CORPUSCULAR HEMOGLOBIN 28.2 pg (27.0-33.0); MEAN CORPUSCULAR HGB CONC 31.3 g/dl (32.0-36.5); MEAN CORPUSCULAR VOLUME 90.2 fl (80.0-96.0); PLATELET COUNT, AUTOMATED 263 10^3/uL (150-450); RED BLOOD COUNT 4.71 10^6/uL (4.00-5.40); WHITE BLOOD COUNT 6.5 10^3/uL (4.0-10.0)
[2024-04-28 09:40] LABS: ALBUMIN 3.1 G/DL (3.2-5.2); ALKALINE PHOSPHATASE 110 U/L (46-116); ALT/SGPT 20 U/L (7.0-40); AST/SGOT 39 U/L (<34); BILIRUBIN,TOTAL 0.3 MG/DL (0.3-1.2); BLOOD UREA NITROGEN 17 MG/DL (9-23); CALCIUM LEVEL 9.7 MG/DL (8.3-10.6); CARBON DIOXIDE LEVEL 26 MMOL/L (20-31); CHLORIDE LEVEL 106 MMOL/L (98-107); CREATININE FOR GFR 0.55 MG/DL (0.55-1.30); GLOMERULAR FILTRATION RATE > 60.0 (>32); GLUCOSE, FASTING 99 MG/DL (74-106); POTASSIUM SERUM 5.6 MMOL/L (3.5-5.1); SODIUM LEVEL 138 MMOL/L (136-145); THYROID STIMULATING HORMONE 1.625 uIU/ML (0.55-4.78); TOTAL PROTEIN 7.7 G/DL (5.7-8.2)
== END ==
LOC: SKLAB8 07:08
PROVIDERS: ATTEND Internal Medicine
DX: Z51.81 Encounter for therapeutic drug level monitoring (principal); Z79.899 Other long term (current) drug therapy

== ENCOUNTER → 2024-05-26 | Outpatient (REF) | payer MEDICARE, MEDICAID, OTHER | LOC: SKLAB8 07:25 | PROVIDERS: ATTEND Internal Medicine | DX: E55.9 Vitamin D deficiency, unspecified (principal); Z79.899 Other long term (current) drug therapy ==

== ENCOUNTER → 2024-08-04 | Outpatient (REF) | payer MEDICARE, MEDICAID, OTHER ==
[2024-08-04 11:02] LABS: CHOLESTEROL RISK RATIO 4.76 (<5); HDL CHOLESTEROL 23.9 MG/DL (>40); LDL CHOLESTEROL 70.3 MG/DL (<100); NON-HDL-C 90.1 MG/DL
== END ==
LOC: SKLAB7 07:00
PROVIDERS: ATTEND Internal Medicine
DX: E78.5 Hyperlipidemia, unspecified (principal)

== ENCOUNTER → 2024-08-10 | Outpatient (REF) | payer MEDICARE, MEDICAID, OTHER ==
[2024-08-10 12:24] LABS: HEMATOCRIT 43.2 % (36.0-47.0); HEMOGLOBIN 13.8 g/dl (12.0-15.5); MEAN CORPUSCULAR HEMOGLOBIN 30.7 pg (27.0-33.0); MEAN CORPUSCULAR HGB CONC 31.9 g/dl (32.0-36.5); PLATELET COUNT, AUTOMATED 221 10^3/uL (150-450); WHITE BLOOD COUNT 8.3 10^3/uL (4.0-10.0)
[2024-08-10 12:47] LABS: BLOOD UREA NITROGEN 22 MG/DL (9-23); CARBON DIOXIDE LEVEL 28 MMOL/L (20-31); CHLORIDE LEVEL 111 MMOL/L (98-107); CREATININE FOR GFR 0.67 MG/DL (0.55-1.30); GLOMERULAR FILTRATION RATE > 60.0 (>32); GLUCOSE, FASTING 102 MG/DL (74-106); POTASSIUM SERUM 4.6 MMOL/L (3.5-5.1); SODIUM LEVEL 144 MMOL/L (136-145)
== END ==
LOC: SKLAB7 11:11
PROVIDERS: ATTEND Internal Medicine
DX: R41.82 Altered mental status, unspecified (principal)

== ENCOUNTER → 2024-08-25 | Outpatient (REF) | payer MEDICARE, MEDICAID, OTHER | LOC: SKLAB7 08:18 | PROVIDERS: ATTEND Internal Medicine | DX: R06.02 Shortness of breath (principal); I27.20 Pulmonary hypertension, unspecified ==

== ENCOUNTER → 2024-10-27 | Outpatient (REF) | payer MEDICARE, MEDICAID, OTHER ==
[2024-10-27 10:33] LABS: HEMATOCRIT 41.9 % (36.0-47.0); HEMOGLOBIN 13.7 g/dl (12.0-15.5); MEAN CORPUSCULAR HEMOGLOBIN 31.6 pg (27.0-33.0); MEAN CORPUSCULAR HGB CONC 32.7 g/dl (32.0-36.5); MEAN CORPUSCULAR VOLUME 96.8 fl (80.0-96.0); PLATELET COUNT, AUTOMATED 253 10^3/uL (150-450); RED BLOOD COUNT 4.33 10^6/uL (4.00-5.40); WHITE BLOOD COUNT 8.2 10^3/uL (4.0-10.0)
[2024-10-27 10:54] LABS: ALBUMIN 3.2 G/DL (3.2-5.2); ALKALINE PHOSPHATASE 109 U/L (35-104); ALT/SGPT 16 U/L (7.0-40); AST/SGOT 17 U/L (<34); BILIRUBIN,TOTAL 0.5 MG/DL (0.3-1.2); BLOOD UREA NITROGEN 20 MG/DL (9-23); CALCIUM LEVEL 10.2 MG/DL (8.3-10.6); CARBON DIOXIDE LEVEL 27 MMOL/L (20-31); CHLORIDE LEVEL 107 MMOL/L (98-107); CREATININE FOR GFR 0.64 MG/DL (0.55-1.30); GLOMERULAR FILTRATION RATE > 60.0 (>32); GLUCOSE, FASTING 116 MG/DL (74-106); POTASSIUM SERUM 4.3 MMOL/L (3.5-5.1); SODIUM LEVEL 144 MMOL/L (136-145); TOTAL PROTEIN 7.7 G/DL (5.7-8.2)
[2024-10-27 10:58] LABS: THYROID STIMULATING HORMONE 3.973 uIU/ML (0.55-4.78); TOTAL 25(OH) VITAMIN D 36.6 NG/ML (20.0-100.0)
== END ==
LOC: SKLAB7 07:00
PROVIDERS: ATTEND Internal Medicine
DX: I10 Essential (primary) hypertension (principal); Z51.81 Encounter for therapeutic drug level monitoring; Z79.899 Other long term (current) drug therapy

== ENCOUNTER → 2024-12-05 | Outpatient (REF) | payer MEDICARE, MEDICAID, OTHER | LOC: SKLAB7 14:34 | PROVIDERS: ATTEND Internal Medicine | DX: R06.02 Shortness of breath (principal); I28.8 Other diseases of pulmonary vessels ==

== ENCOUNTER → 2024-12-05 | Outpatient (REF) | payer MEDICARE, MEDICAID, OTHER ==
[2024-12-05 12:20] LABS: HEMATOCRIT 42.9 % (36.0-47.0); HEMOGLOBIN 13.6 g/dl (12.0-15.5); MEAN CORPUSCULAR HEMOGLOBIN 31.3 pg (27.0-33.0); MEAN CORPUSCULAR HGB CONC 31.7 g/dl (32.0-36.5); MEAN CORPUSCULAR VOLUME 98.8 fl (80.0-96.0); PLATELET COUNT, AUTOMATED 234 10^3/uL (150-450); RED BLOOD COUNT 4.34 10^6/uL (4.00-5.40); WHITE BLOOD COUNT 9.4 10^3/uL (4.0-10.0)
[2024-12-05 13:25] LABS: BLOOD UREA NITROGEN 31 MG/DL (9-23); CALCIUM LEVEL 9.4 MG/DL (8.3-10.6); CARBON DIOXIDE LEVEL 27 MMOL/L (20-31); CHLORIDE LEVEL 106 MMOL/L (98-107); CREATININE FOR GFR 0.68 MG/DL (0.55-1.30); GLOMERULAR FILTRATION RATE > 60.0 (>32); GLUCOSE, FASTING 103 MG/DL (74-106); POTASSIUM SERUM 4.4 MMOL/L (3.5-5.1); SODIUM LEVEL 145 MMOL/L (136-145)
== END ==
LOC: SKLAB7 10:49
PROVIDERS: ATTEND Internal Medicine
DX: R09.89 Other specified symptoms and signs involving the circulatory and respiratory systems (principal); R05.9 Cough, unspecified; R06.02 Shortness of breath; I28.8 Other diseases of pulmonary vessels

== ENCOUNTER → 2024-12-08 | Outpatient (REF) | payer MEDICARE, MEDICAID, OTHER ==
[2024-12-08 11:14] LABS: HEMATOCRIT 40.5 % (36.0-47.0); HEMOGLOBIN 13.2 g/dl (12.0-15.5); MEAN CORPUSCULAR HEMOGLOBIN 32.2 pg (27.0-33.0); MEAN CORPUSCULAR HGB CONC 32.6 g/dl (32.0-36.5); MEAN CORPUSCULAR VOLUME 98.8 fl (80.0-96.0); PLATELET COUNT, AUTOMATED 216 10^3/uL (150-450); WHITE BLOOD COUNT 8.8 10^3/uL (4.0-10.0)
[2024-12-08 11:57] LABS: ALBUMIN 2.9 G/DL (3.2-5.2); ALKALINE PHOSPHATASE 89 U/L (35-104); ALT/SGPT 13 U/L (7.0-40); AST/SGOT 14 U/L (<34); BILIRUBIN,TOTAL 0.3 MG/DL (0.3-1.2); BLOOD UREA NITROGEN 24 MG/DL (9-23); CALCIUM LEVEL 9.6 MG/DL (8.3-10.6); CARBON DIOXIDE LEVEL 27 MMOL/L (20-31); CHLORIDE LEVEL 104 MMOL/L (98-107); CREATININE FOR GFR 0.74 MG/DL (0.55-1.30); GLOMERULAR FILTRATION RATE > 60.0 (>32); GLUCOSE, FASTING 118 MG/DL (74-106); POTASSIUM SERUM 4.5 MMOL/L (3.5-5.1); SODIUM LEVEL 143 MMOL/L (136-145); TOTAL PROTEIN 7.1 G/DL (5.7-8.2)
[2024-12-08 11:58] LABS: THYROID STIMULATING HORMONE 1.825 uIU/ML (0.55-4.78)
[2024-12-08 11:59] LABS: TOTAL 25(OH) VITAMIN D 37.7 NG/ML (20.0-100.0)
== END ==
LOC: SKLAB7 07:00
PROVIDERS: ATTEND Internal Medicine
DX: E55.9 Vitamin D deficiency, unspecified (principal); E03.9 Hypothyroidism, unspecified; N18.9 Chronic kidney disease, unspecified

== ENCOUNTER → 2025-03-27 | Outpatient (CLI) | payer MEDICARE, MEDICAID ==
[~2025-03-27] MED LIST changes: +ATOR1TAB19 PO; +MED REC COMMENT; +MENT113P2 TP; +SERT25TA21 PO
== END ==
LOC: M RAD 13:25
PROVIDERS: ATTEND Nurse Practitioner
DX: R93.422 Abnormal radiologic findings on diagnostic imaging of left kidney (principal); D72.829 Elevated white blood cell count, unspecified

== ENCOUNTER → 2025-03-27 | Outpatient (REF) | payer MEDICARE, MEDICAID, OTHER ==
[2025-03-27 12:19] LABS: AMORPHOUS SEDIMENT MODERATE (NEGATIVE); APPEARANCE, URINE TURBID (CLEAR); BACTERIA, URINE AUTO 3+ (NEGATIVE); BILIRUBIN, URINE AUTO NEGATIVE (NEGATIVE); BLOOD, URINE BLOOD 3+ (NEGATIVE); COLOR, URINE YELLOW (YELLOW); GLUCOSE, URINE (UA) AUTO NEGATIVE (NEGATIVE); KETONE, URINE AUTO TRACE mg/dL (NEGATIVE); LEUKOCYTE ESTERASE, URINE AUTO 2+ (NEGATIVE); MUCUS, URINE SMALL (NEGATIVE); NITRITE, URINE AUTO NEGATIVE (NEGATIVE); PROTEIN, URINE AUTO 3+ mg/dL (NEGATIVE); RBC, URINE AUTO TNTC /HPF (0-3); SPECIFIC GRAVITY URINE AUTO 1.014 (1.002-1.035); SQUAMOUS EPITHELIAL CELL UR AU 3 /HPF (0-6); UROBILINOGEN, URINE AUTO 0.2 mg/dL (0.0-2.0); WBC, URINE AUTO TNTC /HPF (0-3)
== END ==
LOC: SKLAB7 11:18
PROVIDERS: ATTEND Internal Medicine
DX: D72.829 Elevated white blood cell count, unspecified (principal); R10.9 Unspecified abdominal pain

== ENCOUNTER → 2025-03-27 | Outpatient (REF) | payer MEDICARE, MEDICAID, OTHER ==
[2025-03-27 11:00] LABS: HEMATOCRIT 41.8 % (36.0-47.0); HEMOGLOBIN 13.2 g/dl (12.0-15.5); MEAN CORPUSCULAR HEMOGLOBIN 31.3 pg (27.0-33.0); MEAN CORPUSCULAR HGB CONC 31.6 g/dl (32.0-36.5); MEAN CORPUSCULAR VOLUME 99.1 fl (80.0-96.0); PLATELET COUNT, AUTOMATED 211 10^3/uL (150-450); RED BLOOD COUNT 4.22 10^6/uL (4.00-5.40); WHITE BLOOD COUNT 33.3 10^3/uL (4.0-10.0)
[2025-03-27 11:28] LABS: CALCIUM LEVEL 9.8 MG/DL (8.3-10.6); CREATININE FOR GFR 1.57 MG/DL (0.55-1.30); GLOMERULAR FILTRATION RATE 31.7 (>32); POTASSIUM SERUM 4.2 MMOL/L (3.5-5.1)
== END ==
LOC: SKLAB7 09:22
PROVIDERS: ATTEND Internal Medicine
DX: R11.10 Vomiting, unspecified (principal)

== ENCOUNTER → 2025-05-25 | Outpatient (REF) | payer MEDICARE, MEDICAID ==
[~2025-05-25] MED LIST changes: +FURO20TA2; +POTA20LI16 PO; +TAMS-18 PO
[2025-05-25 07:53] LABS: PLATELET COUNT, AUTOMATED 214 10^3/uL (150-450)
[2025-05-25 08:27] LABS: ALT/SGPT < 9 U/L (7.0-40); AST/SGOT 15 U/L (<34); CALCIUM LEVEL 9.3 MG/DL (8.3-10.6); CARBON DIOXIDE LEVEL 29 MMOL/L (20-31); CHLORIDE LEVEL 102 MMOL/L (98-107); CREATININE FOR GFR 0.80 MG/DL (0.55-1.30); GLOMERULAR FILTRATION RATE 71.3 (>32); POTASSIUM SERUM 4.4 MMOL/L (3.5-5.1); SODIUM LEVEL 142 MMOL/L (136-145); TOTAL 25(OH) VITAMIN D 59.0 NG/ML (20.0-100.0)
== END ==
LOC: SKLAB7 07:00
PROVIDERS: ATTEND Internal Medicine
DX: I10 Essential (primary) hypertension (principal); N20.0 Calculus of kidney; N39.0 Urinary tract infection, site not specified; Z79.82 Long term (current) use of aspirin; Z79.890 Hormone replacement therapy; Z79.899 Other long term (current) drug therapy

== ENCOUNTER → 2025-07-16 | Outpatient (REF) | LOC: SKLAB7 12:19 | PROVIDERS: ATTEND Internal Medicine | DX: R19.7 Diarrhea, unspecified (principal); Z53.8 Procedure and treatment not carried out for other reasons ==

== ENCOUNTER → 2025-08-01 | Outpatient (REF) | payer MEDICARE, MEDICAID ==
[2025-08-01 12:01] LABS: CHOLESTEROL LEVEL 135.0 MG/DL (<200); CHOLESTEROL RISK RATIO 4.41 (<5); LDL CHOLESTEROL 76.2 MG/DL (<100); NON-HDL-C 104.4 MG/DL; TRIGLYCERIDES LEVEL 141.0 MG/DL (<150)
== END ==
LOC: SKLAB7 07-27 07:00
PROVIDERS: ATTEND Internal Medicine
DX: E78.5 Hyperlipidemia, unspecified (principal)